=== PATIENT | male | born 1940 | race Caucasian/White ===

== ENCOUNTER → 2016-05-22 | Outpatient (CLI) | payer OTHER ==
[~2016-05-22] MED LIST: ACET-1487 PO; ASPI81TA28 PO; CHOL1000 PO; COEN1CAP7 PO; CRDCD/180 PO; FAMO20TA11 PO; FRS/40 PO; GABA-113 PO; LPT/40 PO; METO1TAB70 PO; NITR0.4S UT; NORT10CA2 PO; OMEP20TA14 PO; OXYB5TAB21 PO; OXYC1TAB3 PO; POLY335025 PO; POTA-327 PO; RXC5 PO; TRIA75TA53 PO; WARF5TAB7 PO; ZOLP10TA PO; selenium PO
== END | disposition home or self-care (01) ==
LOC: C.PATHSPEC 13:55
PROVIDERS: ATTEND Dermatology
DX: B07.9 Viral wart, unspecified (principal); L85.8 Other specified epidermal thickening; L57.0 Actinic keratosis; L82.1 Other seborrheic keratosis

== ENCOUNTER → 2016-05-23 | Outpatient (CLI) | payer OTHER ==
[2015-05-25 13:34] VITALS: BP 131/78; PULSE 55
[2016-05-23 13:04] VITALS: BP 127/84; PULSE 56; TEMP 36.7; O2SAT 98
--- NOTE | 2016-05-23 15:56 | Radiation Oncology Follow-Up ---
Radiation Oncology Follow-Up Date of Visit May 23, 2016. Reason For Visit Annual follow-up Radiation Completion Date Prostate implant 08/18/02;Ext. RT 11/16/12;Declined horm. suppression; Diagnosis (1) Prostate cancer Status: Resolved Onset Date: 01/30/2012 Location: left lobe of the prostate Histology Subtype: adenocarcinoma Stage: ll Permanent Comment: Rising PSA Status post ultrasound-guided biopsies biopsy stage T2b [place] grade 3+4 Status post seed implant with cesium 131 08/18/2002 Status post completion of IMRT IGRT completed 11/16/2012 Declined hormone suppression Last Edited By: Lupe Blanco on May 25, 2015 15:12 Interim History He's been doing well over this past year. His urinary status is stable. He gave an AUA score of 5. He completed expanded prostate cancer index composite for clinical practice and gave a score of 0 of 12 in urinary incontinence symptoms. He gave a score of 2 of 12 in urinary irritation symptoms. He gave a score of 2 of 12 in bowel symptoms. He did not complete the sexual symptom questionnaire he wrote "impotent" he gave a score of 3 of 12 in hormonal vitality symptoms. His total was 8 of 48. He has been tried on multiple medications for impotence including Viagra and Cialis. He was given Cialis for daily use at his last visit with Dr. Gagnon. He is concerned about potential side effects of medication. He stated when he took Viagra this caused lethargy and headaches. Allergies Coded Allergies: Chlorpheniramine (Verified Allergy, Intermediate, URETER SWELLED SHUT, ) Phenylpropanolamine (Verified Allergy, Intermediate, URETER SWELLED SHUT, 07/28/15) Losartan (Unverified Allergy, Unknown, per cardio note- increase in creatine, 07/28/15) Home Medications Scheduled Acetaminophen (Tylenol Arthritis Ext Rel), 1,300 MG PO BID Aspirin (Aspirin Ec), 81 MG PO DAILY Atorvastatin (Lipitor), 40 MG PO QAM Cholecalciferol (Vitamin D3), 1 TAB PO QAM Coenzyme Q10 (Ubidecarenone) (Coq10), 1 CAP PO DAILY Diltiazem Hcl Coated Beads (Cardizem Cd), 360 MG PO HS Famotidine (Pepcid), 20 MG PO DAILY Furosemide (Lasix), 40 MG PO QAM Gabapentin (Neurontin), 300 MG PO HS Metoprolol Succinate (Toprol Xl), 200 MG PO HS Nitroglycerin (Nitrostat), 0.4 MG UT PRN Nortriptyline (Pamelor), 10 MG PO HS Potassium Ext Rel (Klor-Con), 10 MEQ PO DAILY Triamterene/Hctz (Maxzide 75MG/50MG), 1 TAB PO QAM Warfarin Sod (Jantoven), 5 MG PO DIRECTED Zolpidem Tartrate (Ambien), 10 MG PO HS PRN [selenium], 200 MG PO DAILY Scheduled PRN Oxycodone HCl (Oxycodone HCl), 5-10 MG PO Q4H PRN for Pain Polyethylene Glycol 3350 (Miralax), 1 PACK PO DAILY PRN for Constipation Review of Systems Gastrointestinal: Symptoms: Constipation, Rectal Bleeding GI Comments: Uses miralax w/relief;No fiber supplements; Oral: Symptoms: No Problems Respiratory: Symptoms: WNL Urinary: Symptoms: WNL Comments: Doesn't ignore urge to void;2 voids/night; Skin: Symptoms: No Problems Other Skin Symptoms: psorasis on knees Physical Exam Vital Signs Date Time Temp Pulse Resp B/P Pulse Ox O2 Delivery O2 Flow Rate FiO2 05/23/16 13:04 36.7 56 16 127/84 98 Pain: Pain Onset: 9 months Pain Duration: Constant Side: Left Pain Location: Back Patient Pain Scale: 0 - 10 Initial Pain Intensity: 10.0 Pain Description: Stabbing, Sharp Additional Comments: Appt with pain management tomorrow Fatigue: None General Appearance: no apparent distress Eyes: normal inspection, EOMI ENT: normal ENT inspection, hearing grossly normal Respiratory/Chest: lungs clear, no respiratory distress, no accessory muscle use Cardiovascular: regular rate, rhythm, no gallop, no murmur Abdomen: non tender, soft, no organomegaly Anal / Rectum: Deferred. Performed by his PCP last month. Extremities: no pedal edema Neurologic/Psychiatric: no motor/sensory deficits, alert, normal mood/affect Laboratory Studies Test 03/04/16 12:09 White Blood Count 7.41 K/uL (4.8-10.8) Red Blood Count 4.93 M/uL (4.7-6.1) Hemoglobin 14.8 g/dL (14.0-18.0) Hematocrit 43.1 % (42-52) Mean Corpuscular Volume 87.4 fL (80-100) Mean Corpuscular Hemoglobin 30.0 pg (25-34) Mean Corpuscular Hemoglobin Concent 34.3 g/dl (32-36) Platelet Count 202 K/uL (130-400) Mean Platelet Volume 10.1 fL (7.4-10.4) Neutrophils (%) (Auto) 55.5 % Lymphocytes (%) (Auto) 31.6 % Monocytes (%) (Auto) 10.8 % Eosinophils (%) (Auto) 1.1 % Basophils (%) (Auto) 0.7 % Neutrophils # (Auto) 4.12 K/uL (1.4-6.5) Lymphocytes # (Auto) 2.34 K/uL (1.2-3.4) Monocytes # (Auto) 0.80 K/uL (0.11-0.59) Eosinophils # (Auto) 0.08 K/uL (0-0.5) Basophils # (Auto) 0.05 K/uL (0-0.2) RDW Standard Deviation 45.7 fL (36.4-46.3) RDW Coefficient of Variation 14.4 % (11.5-14.5) Immature Granulocyte % (Auto) 0.3 % Immature Granulocyte # (Auto) 0.02 K/uL (0.00-0.02) Sodium Level 143 mmol/L (136-145) Potassium Level 3.8 mmol/L (3.5-5.1) Chloride Level 107 mmol/L (98-107) Carbon Dioxide Level 26 mmol/L (21-32) Anion Gap 10.0 mmol/L (3-11) Blood Urea Nitrogen 16 mg/dl (7-18) Creatinine 1.20 mg/dl (0.60-1.40) Estimated GFR () 68.1 Estimated GFR (Non- 58.8 BUN/Creatinine Ratio 13.5 (10-20) Random Glucose 117 mg/dl (70-99) Estimated Average Glucose 134 mg/dl Hemoglobin A1c 6.3 % (4.5-5.6) Calcium Level 9.4 mg/dl (8.5-10.1) Prostate Specific Antigen 0.040 ng/ml (0.000-4.000) 25-Hydroxy Vitamin D Total 30.2 ng/ml (30-100) Thyroid Stimulating Hormone (TSH) 1.740 uIu/ml (0.300-4.500) Additional Studies He has had recheck PSAs. His PSA on 05/26/2015 was 0.040. The PSA on 2015 was 0.040. Assessment & Plan Plan: Continue regular follow-up with Dr. Gagnon and his primary care physician. We'll he will need to review taking the Cialis with Dr. Gallagher. There would be a concerned due to his prescription for nitroglycerin. Continue with recheck PSAs every 6 months. We reviewed the trending of his PSAs over the past 4 years. We asked him to return to our office in 1 year. He may call if he has been questions or concerns we'll be happy to see him. Total Time In Follow-Up I spent 20 minutes speaking to the patient and performing examination. I spent 15 minutes reviewing information in completing this note. Copy To Wilmar Gallagher M.D.; Iban Gagnon MD
== END | disposition home or self-care (01) ==
LOC: C.ONC 12:44
PROVIDERS: ATTEND Radiology Radiation Oncology
DX: Z08 Encounter for follow-up examination after completed treatment for malignant neoplasm (principal); Z92.3 Personal history of irradiation; Z85.46 Personal history of malignant neoplasm of prostate

== ENCOUNTER → 2016-10-08 | Outpatient (CLI) | payer OTHER ==
[~2016-10-08] MED LIST changes: -OMEP20TA14 PO; -OXYB5TAB21 PO; -OXYC1TAB3 PO
[2016-10-08 12:21] LABS: BASO % 1.1 %; BASO ABS # 0.07 K/uL (0-0.2); COMPLETE YES; EOS % 1.1 %; HEMATOCRIT 42.2 % (42-52); IG% 0.3 %; LYMPH % 31.2 %; LYMPH ABS # 2.01 K/uL (1.2-3.4); MEAN CELL VOLUME 87.6 fL (80-100); MEAN CORPUSCULAR HEMOGLOBIN 28.8 pg (25-34); MEAN CORPUSCULAR HGB CONC 32.9 g/dl (32-36); MEAN PLATELET VOLUME 10.7 fL (7.4-10.4); MONO % 12.4 %; NEUT % 53.9 %; PLATELET COUNT 171 K/uL (130-400); RED BLOOD COUNT 4.82 M/uL (4.7-6.1); WHITE BLOOD COUNT 6.44 K/uL (4.8-10.8)
[2016-10-08 12:42] LABS: ESTIMATED AVERAGE GLUCOSE 128 mg/dl; HA1C FLAG Normal (Normal)
[2016-10-08 12:51] LABS: ALT/SGPT 21 U/L (12-78); AST/SGOT 14 U/L (15-37); BLOOD UREA NITROGEN 18 mg/dl (7-18); BUN/CREATININE RATIO 18.3 (10-20); CALCIUM 8.9 mg/dl (8.5-10.1); CARBON DIOXIDE 29 mmol/L (21-32); CHLORIDE 106 mmol/L (98-107); CREATININE 0.98 mg/dl (0.60-1.40); GLUCOSE 105 mg/dl (70-99); POTASSIUM 3.7 mmol/L (3.5-5.1); SODIUM 142 mmol/L (136-145)
[2016-10-08 12:54] LABS: ALB/GLOB RATIO 0.9 (0.9-2); ALKALINE PHOSPHATASE 104 U/L (45-117); CHOLESTEROL 94 mg/dl (0-200); CHOLESTEROL/HDL RATIO 2.7; HDL CHOLESTEROL 35 mg/dl; LDL CHOLESTEROL CALCULATED 31 mg/dl; TRIGLYCERIDES 142 mg/dl (0-150); VERY LOW DENSITY LIPOPROT CALC 28 mg/dl
== END | disposition home or self-care (01) ==
LOC: C.LAB 09:51
PROVIDERS: ATTEND Internal Medicine Geriatric Medicine
DX: I12.9 Hypertensive chronic kidney disease with stage 1 through stage 4 chronic kidney disease, or unspecified chronic kidney disease (principal); R51 Headache; I25.10 Atherosclerotic heart disease of native coronary artery without angina pectoris; R73.9 Hyperglycemia, unspecified; N18.9 Chronic kidney disease, unspecified; E78.5 Hyperlipidemia, unspecified; I48.0 Paroxysmal atrial fibrillation; Z79.01 Long term (current) use of anticoagulants

== ENCOUNTER → 2017-02-26 | Outpatient (CLI) | payer OTHER ==
[~2017-02-26] MED LIST changes: +METO-648 PO; -METO1TAB70 PO
[2017-02-26 12:14] LABS: BASO % 0.9 %; COMPLETE YES; EOS % 1.5 %; HEMATOCRIT 43.9 % (42-52); IG% 0.5 %; LYMPH % 20.9 %; LYMPH ABS # 2.35 K/uL (1.2-3.4); MEAN CELL VOLUME 87.8 fL (80-100); MEAN CORPUSCULAR HGB CONC 34.2 g/dl (32-36); MEAN PLATELET VOLUME 10.5 fL (7.4-10.4); MONO % 7.7 %; NEUT % 68.5 %; PLATELET COUNT 251 K/uL (130-400); WHITE BLOOD COUNT 11.24 K/uL (4.8-10.8)
[2017-02-26 12:23] LABS: ESTIMATED AVERAGE GLUCOSE 140 mg/dl; HA1C FLAG Normal (Normal)
[2017-02-26 12:27] LABS: BLOOD UREA NITROGEN 26 mg/dl (7-18); CALCIUM 9.4 mg/dl (8.5-10.1); CARBON DIOXIDE 32 mmol/L (21-32); CHLORIDE 98 mmol/L (98-107); CREATININE 1.35 mg/dl (0.60-1.40); GLUCOSE 126 mg/dl (70-99); POTASSIUM 3.1 mmol/L (3.5-5.1); SODIUM 137 mmol/L (136-145)
[2017-02-26 13:03] LABS: URINE PROTIEN/CREAT RATIO 0.1 (0-0.2); URINE TOTAL PROTEIN 27.2 mg/dl (0-11.9)
--- NOTE | 2017-03-03 10:28 | CODING QUERY MEDICAL NECESSITY ---
SUPPORTING DIAGNOSIS NEEDED Dr. Gagnon, A supporting diagnosis is required for the test/procedure performed on this patient in order for us to be reimbursed by the patient's insurance. Please provide a supporting diagnosis for the following test/procedure listed below next to the test name along with your signature. *If there is no additional diagnosis for this patient that would support the following test/procedure please document that below next to the test/procedure. Test(s)/Procedure(s) that require a supporting diagnosis: * [id number] PSA DIAGNOSIS: DATE OF SERVICE: 02/26/17 Provider Signature: Date: Thank you Benjamín Borges [facility] Information Management Once completed, please kindly fax back to [phone] For questions please call [phone]
--- NOTE | 2017-03-03 10:30 | CODING QUERY MEDICAL NECESSITY ---
SUPPORTING DIAGNOSIS NEEDED Dr. Gallagher, A supporting diagnosis is required for the test/procedure performed on this patient in order for us to be reimbursed by the patient's insurance. Please provide a supporting diagnosis for the following test/procedure listed below next to the test name along with your signature. *If there is no additional diagnosis for this patient that would support the following test/procedure please document that below next to the test/procedure. Test(s)/Procedure(s) that require a supporting diagnosis: * ([id number]) VITAMIN D ASSAY DIAGNOSIS: DATE OF SERVICE: 02/26/17 Provider Signature: Date: Thank you Benjamín Borges [facility] Information Management Once completed, please kindly fax back to [phone] For questions please call [phone]
== END | disposition home or self-care (01) ==
LOC: C.LAB 09:57
PROVIDERS: ATTEND Internal Medicine Geriatric Medicine
DX: I10 Essential (primary) hypertension (principal); R73.9 Hyperglycemia, unspecified; M19.90 Unspecified osteoarthritis, unspecified site; Z87.448 Personal history of other diseases of urinary system; E78.5 Hyperlipidemia, unspecified; G62.9 Polyneuropathy, unspecified; R39.9 Unspecified symptoms and signs involving the genitourinary system; N52.9 Male erectile dysfunction, unspecified

== ENCOUNTER → 2017-03-07 | Outpatient (CLI) | payer OTHER ==
[2017-03-07 10:39] LABS: BLOOD UREA NITROGEN 21 mg/dl (7-18); BUN/CREATININE RATIO 18.5 (10-20); CARBON DIOXIDE 28 mmol/L (21-32); CHLORIDE 104 mmol/L (98-107); CREATININE 1.12 mg/dl (0.60-1.40); GLUCOSE 123 mg/dl (70-99); POTASSIUM 3.7 mmol/L (3.5-5.1); SODIUM 139 mmol/L (136-145)
== END | disposition home or self-care (01) ==
LOC: C.LAB 09:11
PROVIDERS: ATTEND Internal Medicine Geriatric Medicine
DX: Z00.00 Encounter for general adult medical examination without abnormal findings (principal); I10 Essential (primary) hypertension; M19.90 Unspecified osteoarthritis, unspecified site; E11.9 Type 2 diabetes mellitus without complications; Z51.81 Encounter for therapeutic drug level monitoring; Z79.01 Long term (current) use of anticoagulants

== ENCOUNTER → 2017-05-29 | Outpatient (CLI) | payer OTHER ==
[~2017-05-29] MED LIST changes: -METO-648 PO; +METO200T31 PO
--- NOTE | 2017-05-29 07:57 | DIAGNOSTIC IMAGING REPORT ---
LUMBAR SPINE W/O CONTRAST HISTORY: Pain. Neuropathy. LUMBAR RADICULOPATHY TECHNIQUE: Multiplanar multisequence MRI of the lumbar spine was performed without the use of contrast. COMPARISON: None. FINDINGS: For the purpose of the report the L5-S1 disc space will be located on axial image 27 of 30. Signal characteristics the vertebral bodies are unremarkable. Mild disc desiccation is noted throughout. There are findings of a posterior laminectomy and fusion at the L4-L5 level. L1-L2: No significant central canal or neural foraminal narrowing. L2-L3: No significant central canal or neural foraminal narrowing. L3-L4: Mild broad-based disc bulge. Minimal impact with anterior thecal sac. L4-L5: No significant central canal or neural foraminal narrowing. Posterior laminectomy and fusion L5-S1: No significant central canal or neural foraminal narrowing. IMPRESSION: 1. Operative changes consistent with an L4-L5 laminectomy and fusion. 2. Minimal disc bulge L3-L4. 3. No significant disc herniation or component of spinal stenosis. The above report was generated using voice recognition software. It may contain grammatical, syntax or spelling errors. Electronically signed by: Julio Taveras M.D. 05/29/2017 7:56 AM Dictated Date/Time: 05/29/2017 7:43 AM
== END | disposition home or self-care (01) ==
LOC: C.MRIBC 06:43
PROVIDERS: ATTEND Pain Medicine Interventional Pain Medicine
DX: M51.16 Intervertebral disc disorders with radiculopathy, lumbar region (principal); Z98.1 Arthrodesis status

== ENCOUNTER → 2017-06-16 | Outpatient (CLI) | payer OTHER | END | disposition home or self-care (01) | LOC: C.LAB 10:11 | PROVIDERS: ATTEND Pain Medicine Interventional Pain Medicine | DX: Z79.01 Long term (current) use of anticoagulants (principal); Z51.81 Encounter for therapeutic drug level monitoring ==

== ENCOUNTER → 2017-07-29 | Outpatient (CLI) | payer OTHER ==
[2017-07-29 12:14] LABS: BASO % 0.7 %; BASO ABS # 0.06 K/uL (0-0.2); EOS ABS # 0.08 K/uL (0-0.5); HEMATOCRIT 41.3 % (42-52); HEMOGLOBIN 14.2 g/dL (14.0-18.0); IG# 0.04 K/uL (0.00-0.02); LYMPH % 32.7 %; LYMPH ABS # 2.64 K/uL (1.2-3.4); MEAN CELL VOLUME 87.7 fL (80-100); MEAN CORPUSCULAR HEMOGLOBIN 30.1 pg (25-34); MEAN CORPUSCULAR HGB CONC 34.4 g/dl (32-36); MEAN PLATELET VOLUME 10.4 fL (7.4-10.4); MONO % 9.7 %; MONO ABS # 0.78 K/uL (0.11-0.59); NEUT % 55.4 %; NEUT ABS # 4.48 K/uL (1.4-6.5); PLATELET COUNT 189 K/uL (130-400); RED CELL DISTRIBUTION WIDTH CV 13.2 % (11.5-14.5); RED CELL DISTRIBUTION WIDTH SD 42.4 fL (36.4-46.3); WHITE BLOOD COUNT 8.08 K/uL (4.8-10.8)
[2017-07-29 12:26] LABS: ALBUMIN 3.5 gm/dl (3.4-5.0); ALT/SGPT 22 U/L (12-78); AST/SGOT 16 U/L (15-37); BLOOD UREA NITROGEN 24 mg/dl (7-18); CALCIUM 9.1 mg/dl (8.5-10.1); CARBON DIOXIDE 29 mmol/L (21-32); CREATININE 1.23 mg/dl (0.60-1.40); GLUCOSE 132 mg/dl (70-99); POTASSIUM 3.9 mmol/L (3.5-5.1); SODIUM 141 mmol/L (136-145)
[2017-07-29 12:29] LABS: ALKALINE PHOSPHATASE 96 U/L (45-117); CHOLESTEROL 98 mg/dl (0-200); LDL CHOLESTEROL CALCULATED 28 mg/dl; TOTAL PROTEIN 7.5 gm/dl (6.4-8.2)
[2017-07-29 12:46] LABS: HEMOGLOBIN A1C 6.1 % (4.5-5.6)
== END | disposition home or self-care (01) ==
LOC: C.LAB 09:57
PROVIDERS: ATTEND Internal Medicine Geriatric Medicine
DX: I10 Essential (primary) hypertension (principal); I25.10 Atherosclerotic heart disease of native coronary artery without angina pectoris; M19.90 Unspecified osteoarthritis, unspecified site; E78.5 Hyperlipidemia, unspecified; Z79.01 Long term (current) use of anticoagulants; I20.9 Angina pectoris, unspecified; E11.9 Type 2 diabetes mellitus without complications

== ENCOUNTER 2019-07-11 13:26 | Observation (INO) ==
[2019-07-11] MEDS ORDERED: SODIUM CHLORIDE 0.9% 1000ML 1,000 ML IV SCH (14:00)
[2019-07-11] MEDS ORDERED: ONDANSETRON INJ 2 MG/ML 2 ML VIAL IV STA (14:01)
[2019-07-11] MEDS ORDERED: ACETAMINOPHEN 500 MG TAB PO STA (14:01)
--- NOTE | 2019-07-11 14:40 | XRay Report ---
XR chest 1V portable CLINICAL HISTORY: fever ACUTE CHANGE IN MENTAL STATUS COMPARISON STUDY: 07/10/2015 FINDINGS: The heart is mildly enlarged. There is persistent elevation right hemidiaphragm. There is n o failure. There is no focal pulmonary consolidation. There is mild vascular crowding at the right adri ng base. There are no significant pleural effusions.[ IMPRESSION: No active disease in the chest. ACT 112: Negative or not required by law. Electronically signed by: Brain Roca M.D. 07/11/2019 2:38 PM
[2019-07-11 14:42] LABS: Appearance Urine Cloudy (Clear); Bacteria Urine Automated Negative (Negative); Bilirubin Urine Negative (Negative); Blood Urine Trace (Negative); Color Urine Yellow; Glucose Urine UA Negative (Negative); Ketones Urine Negative (Negative); Leukocyte Esterase Urine Negative (Negative); Nitrite Urine Negative (Negative); Protein Urine 1+ (Negative); Specific Gravity Urine 1.015 (1.000-1.030); Urobilinogen Urine Negative (Negative); WBC Urine Automated 0 /hpf (0-5)
[2019-07-11 14:57] LABS: Alanine Aminotransferase 115 U/L (12-78); Albumin Globulin Ratio 0.7 (0.9-2); Albumin Level 3.3 gm/dl (3.4-5.0); Alkaline Phosphatase 145 U/L (45-117); Bilirubin,Total 1.2 mg/dl (0.2-1); Blood Urea Nitrogen 21 mg/dl (7-18); Carbon Dioxide 27 mmol/L (21-32); Chloride 100 mmol/L (98-107); Creatinine Clr Calc Pharmacy 48.8 ml/min; Est GFR (African American) 56.9; Est GFR (Non-African American) 49.1; Glucose 172 mg/dl (70-99); Lipase 80 U/L (73-393); Sodium 135 mmol/L (136-145); Total Protein 8.3 gm/dl (6.4-8.2); Troponin I < 0.015 ng/ml (0-0.045)
[2019-07-11 15:04] LABS: Hematocrit (blood only) 45.5 % (42-52); Hemoglobin 15.8 g/dL (14.0-18.0); Mean Corpuscular Hemoglobin 30.4 pg (25-34); Mean Corpuscular Hgb Conc 34.7 g/dL (32-36); Mean Corpuscular Volume 87.7 fL (80-100); RDW Coefficient of Variation 13.3 % (11.5-14.5); Red Blood Count 5.19 M/uL (4.7-6.1); White Blood Count 5.74 K/uL (4.8-10.8)
[2019-07-11 15:05] LABS: INR 1.2 (0.9-1.1); Partial Thromboplastin Ratio 1.2; Partial Thromboplastin Time 33.1 Seconds (21.0-31.0); Prothrombin Time 12.3 Seconds (9.0-12.0)
--- NOTE | 2019-07-11 15:09 | Emergency Department Note ---
Impression & Plan Anaplasmosis, Headache, Rigors, Thrombocytopenia, Elevated LFTs ED Provider Note Provider: Goran Henao MD DATE OF SERVICE: 07/11/2019 CHIEF COMPLAINT: Fever, headaches, nausea HISTORY OF PRESENT ILLNESS: Patient is a 78-year-old gentleman with a past medical history of prostate cancer status post radiation, atrial fibrillation on Coumadin, CKD, type 2 diabetes presenting today complaining of 4 days of what the patient describes as shaking and seems consistent with Reiger's. Patient st ates he is not recorded a fever at home but felt cold at times and developed several days of a headache more frontal. Denies any significant shortness of breath. Patient denies of cough. Denies any chest pain or abdominal pain. States he has been somewhat nauseous at times as well. Denies abdominal pain. Took Tylenol early this morning around 4 AM but none since then. States he feels quite thirsty. States his urine has become concentrated but denies real dysuria. Has baseline urinary frequency. Denies significant neck pain. Denies sick contacts. Has been self isolating at home. No recent travel. REVIEW OF SYSTEMS: A total of 10 review of systems was obtained and negative except as stated above in the HPI. PAST MEDICAL HISTORY: As noted above MEDICATIONS: Reviewed nursing notes and includes Eliquis SOCIAL HISTORY: Lives at home with . Non-smoker. No alcohol use. PHYSICAL EXAM: GENERAL: alert and oriented in no acute distress on stretcher does appear somewhat fatigued Head: normocephalic and atraumatic EYES: No injection, discharge or icterus. PERRL, EOMI. NECK: Trachea midline. Supple. No meningismus ENT: Mucous membranes pink and moist. Pharynx without any tonsillar swelling or exudate LUNGS: Airway patent. No retractions. Breath sounds clear with good air entry bilaterally. HEART: Regular rate and rhythm. No chest wall tenderness ABDOMEN: Soft and non-tender, without guarding or rebound. SKIN: Acyanotic, warm, dry, without rashes EXTREMITIES: Without swelling, tenderness or deformity NEUROLOGICAL: No focal deficits. No aphasia. No facial droop or slurred speech. Ambulatory. EK bpm and what appears to be atrial fibrillation versus flutter. Difficult to determine QTC given this. Do not see acute ST segment elevation. Compared to July [id number] no longer sinus bradycardia. CONTINUOUS CARDIAC MONITORING: was ordered and showed a heart rate of 87 bpm in atrial fib Patient's hypertension was referred to the hospitalist HOSPITAL COURSE: 1349 Patient was first seen and H&P performed. 1605 Patient reassessed and updated. Airborne precautions were removed. 1611 [facility] hospitalist was alerted. Patient's laboratory studies and imaging reviewed. Differential includes Viral syndrome, otitis, pharyngitis, pneumonia, influenza, meningitis, urinary tract infection, sepsis, bacteremia, as well as other pathologies. IMPRESSION/MEDICAL DECISION MAKING: Patient presents complaining of what sounds like Reiger's with associated fever upon arrival. Does not appear grossly meningitic. No significant respiratory status and no evidence of pneumonia on chest x-ray. Patient does have a slight lactate elevation. Renal function around baseline. No significant hyponatremia. Troponin is negative. Lipase not elevated. Slight elevation of AST, ALT and alkaline phosphatase is noted of unclear significance. Bilirubin 1.2. Urinalysis without convincing evidence of infection at this juncture. Laboratory studies likely show no significant leukocytosis. No anemia is noted. Thrombocytopenia is noted. Did receive a call from the pathologist who was reviewing slides noting inclusion bodies concerning for anaplasmosis. Patient initially medicated with IV fluids Tylenol and Zofran here. On reassessment the patient had some moderate improvement but has had some transient episodes of slight hypertension here. Given his comorbidities, elevated pro calcitonin, and the Reiger's earlier due to some concerns about his ability go home. 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 He denies any recent ticks but [place] and has been doing yard work recently. Given this I have treated him with oral doxycycline and given an empiric dose of ceftriaxone here. Additional IV fluid bolus was given. Do not feel this represents now for coronavirus and believe upper precautions can be removed given the explanation of anaplasmosis. The hospitalist was alerted. DIAGNOSIS: Anaplasmosis, headache, elevated LFTs, thrombocytopenia, rigors DISPOSITION: Hospitalist will evaluate Patient was agreeable with this plan. Past Med/Surg History Social History Preferred Language: Thai Communication Ability: Effective Visual Impairment: Limited Hearing Ability: Hard of Hearing Minute Clerk Required: No Beliefs That Will Affect Care: None marital status: Current Living Situation: Spouse current occupational status: retired Feels Safe at Home: Yes Smoking Status: Never smoker Second Hand Exposure: No ; Hx Alcohol Use: No Hx Substance Use: No Childhood Exposure to Second-Hand Smoke: Yes caffeine: Yes (1/2 cup of coffee daily) Dental Care, Regularly: Yes Physical Activity Frequency: Does not Exercise Seatbelt Use: always Sunscreen Use: No (wears a hat while in the sun) Allergies Allergies Allergy/AdvReac Type Severity Reaction Status Date / Time felodipine [From Plendil] Allergy Unknown unknown Verified 07/11/19 14:37 reaction losartan Allergy Unknown elevated Verified 07/11/19 14:37 creatinine (per records) chlorpheniramine AdvReac Unknown ureteral Verified 07/11/19 14:37 swelling [employer] AdvReac Unknown ureteral Uncoded 07/11/19 14:37 swelling Home Meds Home Medications Medication Instructions Recorded Confirmed acetaminophen 650 mg 1,300 mg PO BID tab 10/15/18 07/11/19 tablet,extended release cholecalciferol (vitamin D3) 25 1,000 units PO DAILY tab 10/15/18 07/11/19 mcg (1,000 unit) tablet nitroglycerin 0.4 mg sublingual 0.4 mg SL ONCE PRN #25 tab 10/15/18 07/11/19 tablet polyethylene glycol 3350 17 gram 17 gm PO DAILY PRN 12/15/18 07/11/19 oral powder packet aspirin [Aspir-81] 81 mg PO DAILY 01/22/19 07/11/19 diltiazem HCl 240 mg PO QAM 01/22/19 07/11/19 nortriptyline 10 mg PO HS 01/22/19 07/11/19 potassium chloride 40 meq PO DAILY 01/22/19 07/11/19 triamterene-hydrochlorothiazid 1 tab PO QAM 01/22/19 07/11/19 docusate sodium 100 mg capsule 100 mg PO QAM cap 01/25/19 07/11/19 gabapentin 300 mg capsule 300 mg PO TID #270 cap 01/25/19 07/11/19 metoprolol succinate 100 mg 150 mg PO DAILY tab 01/25/19 07/11/19 tablet,extended release 24 hr apixaban 5 mg tablet 5 mg PO BID 05/06/19 07/11/19 furosemide 40 mg tablet 40 mg PO [id number] tab 05/06/19 07/11/19 Previous Rx's Medication Instructions Recorded blood sugar diagnostic #100 ea 02/09/19 lancets 33 gauge #100 ea 02/09/19 furosemide 40 mg tablet 40 mg PO DAILY PRN #30 tab 05/05/19 atorvastatin 80 mg tablet 80 mg PO HS #90 tab 05/06/19 Results & Data (ED) Vital Signs Vital Signs - 24 hr 07/11/19 13:30 07/11/19 14:24 07/11/19 14:29 Temperature 39.2 C H Temperature Source Oral Pulse Rate 96 H 98 H 90 Pulse Rate from SpO2 Sensor 91 H 91 H Respiratory Rate 20 22 28 H Respiratory Effort / Characteristics Non-Labored Spontaneous Respiratory Depth Normal Respiratory Pattern Regular Blood Pressure 134/78 110/73 Blood Pressure Mean 96 77 Pulse Oximetry 95 92 95 Oxygen Delivery Method Room Air Sepsis Recent Fever Within 48 Hours Yes Sepsis New/Unexplained Change in Mental Status No Sepsis Action Taken by Nursing No Action Required 07/11/19 14:30 07/11/19 14:31 07/11/19 15:00 Temperature Temperature Source Pulse Rate 84 87 84 Pulse Rate from SpO2 Sensor 88 94 H 86 Respiratory Rate 21 24 22 Respiratory Effort / Characteristics Respiratory Depth Respiratory Pattern Blood Pressure 135/68 99/76 L Blood Pressure Mean 72 83 Pulse Oximetry 95 95 96 Oxygen Delivery Method Sepsis Recent Fever Within 48 Hours Sepsis New/Unexplained Change in Mental Status Sepsis Action Taken by Nursing 07/11/19 15:05 07/11/19 15:08 07/11/19 15:30 Temperature 37.7 C H Temperature Source Oral Pulse Rate 75 82 Pulse Rate from SpO2 Sensor 74 87 Respiratory Rate 20 24 Respiratory Effort / Characteristics Respiratory Depth Respiratory Pattern Blood Pressure 99/76 L 127/78 Blood Pressure Mean 84 83 Pulse Oximetry 95 94 Oxygen Delivery Method Sepsis Recent Fever Within 48 Hours Sepsis New/Unexplained Change in Mental Status Sepsis Action Taken by Nursing 07/11/19 15:31 07/11/19 16:00 07/11/19 16:30 Temperature Temperature Source Pulse Rate 80 92 H 86 Pulse Rate from SpO2 Sensor 92 H 92 H 92 H Respiratory Rate 22 33 H 19 Respiratory Effort / Characteristics Respiratory Depth Respiratory Pattern Blood Pressure 109/77 Blood Pressure Mean 83 Pulse Oximetry 96 92 93 Oxygen Delivery Method Sepsis Recent Fever Within 48 Hours Sepsis New/Unexplained Change in Mental Status Sepsis Action Taken by Nursing 07/11/19 16:31 Temperature Temperature Source Pulse Rate 89 Pulse Rate from SpO2 Sensor 91 H Respiratory Rate 22 Respiratory Effort / Characteristics Respiratory Depth Respiratory Pattern Blood Pressure 99/65 L Blood Pressure Mean 90 Pulse Oximetry 94 Oxygen Delivery Method Sepsis Recent Fever Within 48 Hours Sepsis New/Unexplained Change in Mental Status Sepsis Action Taken by Nursing Laboratory Data Result diagrams: 07/11/19 14:15 07/11/19 Unknown Lab Results 07/11/19 07/11/19 07/11/19 Range/Units 14:15 14:15 14:15 WBC (4.8-10.8) K/uL RBC (4.7-6.1) M/uL Hgb (14.0-18.0) g/dL Hct (42-52) % MCV (80-100) fL MCH (25-34) pg MCHC (32-36) g/dL RDW Std Deviation (36.4-46.3) fL RDW Coeff of Patito (11.5-14.5) % Plt Count (130-400) K/uL MPV (7.4-10.4) fL Immature Gran % (Auto) % Neut % (Auto) % Lymph % (Auto) % Owen % (Auto) % Eos % (Auto) % Baso % (Auto) % Immature Gran # (Auto) (0.00-0.02) K/uL Neut # (Auto) (1.4-6.5) K/uL Lymph # (Auto) (1.2-3.4) K/uL Owen # (Auto) (0.11-0.59) K/uL Eos # (Auto) (0-0.5) K/uL Baso # (Auto) (0-0.2) K/uL Blood Smear Review Toxic Vacuolation Platelet Estimate (Normal) PT Cancelled INR Cancelled APTT (21.0-31.0) Seconds PTT Ratio Sodium 135 L (136-145) mmol/L Potassium (3.5-5.1) mmol/L Chloride 100 (98-107) mmol/L Carbon Dioxide 27 (21-32) mmol/L Anion Gap 8.0 (3-11) BUN 21 H (7-18) mg/dl Creatinine 1.37 (0.6-1.4) mg/dl Est Cr Clr Drug Dosing 48.8 ml/min Est GFR ( Amer) 56.9 Est GFR (Non-Af Amer) 49.1 BUN/Creatinine Ratio 15.0 (10-20) Glucose 172 H (70-99) mg/dl Lactate 2.3 H* (0.4-2.0) mmol/L Calcium 9.0 (8.5-10.1) mg/dl Total Bilirubin 1.2 H (0.2-1) mg/dl AST (15-37) U/L ALT 115 H (12-78) U/L Alkaline Phosphatase 145 H (45-117) U/L Troponin I < 0.015 (0-0.045) ng/ml Total Protein 8.3 H (6.4-8.2) gm/dl Albumin 3.3 L (3.4-5.0) gm/dl Globulin 5.0 H (2.5-4.0) gm/dl Albumin/Globulin Ratio 0.7 L (0.9-2) Lipase 80 (73-393) U/L Procalcitonin (0-0.5) ng/ml Urine Color Urine Appearance (Clear) Urine pH (4.5-7.5) Ur Specific [place] (1.000-1.030) Urine Protein (Negative) Urine Glucose (UA) (Negative) Urine Ketones (Negative) Urine Blood (Negative) Urine Nitrite (Negative) Urine Bilirubin (Negative) Urine Urobilinogen (Negative) Ur Leukocyte Esterase (Negative) Urine WBC (Auto) (0-5) /hpf Urine RBC (Auto) (0-4) /hpf U Hyaline Cast (Auto) (0-5) /lpf U Epithel Cells (Auto) (0-5) /lpf Urine Bacteria (Auto) (Negative) Adenovirus (PCR) (NotDetected) B. pertussis DNA (PCR) (NotDetected) B.parapertussis DNA PCR (NotDetected) C. pneumoniae DNA (PCR) (NotDetected) Coronavirus OC43 (PCR) (NotDetected) Coronavirus HKU1 (PCR) (NotDetected) Coronavirus 229E (PCR) (NotDetected) Coronavirus NL63 (PCR) (NotDetected) Human Metapneumovir PCR (NotDetected) Influenza Type A (PCR) (NotDetected) Influenza Type B (PCR) (NotDetected) M. pneumoniae (PCR) (NotDetected) Parainfluenza 1 (PCR) (NotDetected) Parainfluenza 2 (PCR) (NotDetected) Parainfluenza 3 (PCR) (NotDetected) Parainfluenza 4 (PCR) (NotDetected) RSV (PCR) (NotDetected) Entero/Rhino (PCR) (NotDetected) 07/11/19 07/11/19 07/11/19 Range/Units 14:15 14:15 14:15 WBC 5.74 (4.8-10.8) K/uL RBC 5.19 (4.7-6.1) M/uL Hgb 15.8 (14.0-18.0) g/dL Hct 45.5 (42-52) % MCV 87.7 (80-100) fL MCH 30.4 (25-34) pg MCHC 34.7 (32-36) g/dL RDW Std Deviation 43.0 (36.4-46.3) fL RDW Coeff of Patito 13.3 (11.5-14.5) % Plt Count 43 L (130-400) K/uL MPV 12.1 H (7.4-10.4) fL Immature Gran % (Auto) 0.3 % Neut % (Auto) 78.4 % Lymph % (Auto) 11.7 % Owen % (Auto) 8.9 % Eos % (Auto) 0.0 % Baso % (Auto) 0.7 % Immature Gran # (Auto) 0.02 (0.00-0.02) K/uL Neut # (Auto) 4.50 (1.4-6.5) K/uL Lymph # (Auto) 0.67 L (1.2-3.4) K/uL Owen # (Auto) 0.51 (0.11-0.59) K/uL Eos # (Auto) 0.00 (0-0.5) K/uL Baso # (Auto) 0.04 (0-0.2) K/uL Blood Smear Review Toxic Vacuolation 1+ Platelet Estimate Decreased L (Normal) PT INR APTT (21.0-31.0) Seconds PTT Ratio Sodium (136-145) mmol/L Potassium (3.5-5.1) mmol/L Chloride (98-107) mmol/L Carbon Dioxide (21-32) mmol/L Anion Gap (3-11) BUN (7-18) mg/dl Creatinine (0.6-1.4) mg/dl Est Cr Clr Drug Dosing ml/min Est GFR ( Amer) Est GFR (Non-Af Amer) BUN/Creatinine Ratio (10-20) Glucose (70-99) mg/dl Lactate (0.4-2.0) mmol/L Calcium (8.5-10.1) mg/dl Total Bilirubin (0.2-1) mg/dl AST (15-37) U/L ALT (12-78) U/L Alkaline Phosphatase (45-117) U/L Troponin I (0-0.045) ng/ml Total Protein (6.4-8.2) gm/dl Albumin (3.4-5.0) gm/dl Globulin (2.5-4.0) gm/dl Albumin/Globulin Ratio (0.9-2) Lipase (73-393) U/L Procalcitonin 0.93 H (0-0.5) ng/ml Urine Color Yellow Urine Appearance Cloudy A (Clear) Urine pH 5.0 (4.5-7.5) Ur Specific [place] 1.015 (1.000-1.030) Urine Protein 1+ H (Negative) Urine Glucose (UA) Negative (Negative) Urine Ketones Negative (Negative) Urine Blood Trace H (Negative) Urine Nitrite Negative (Negative) Urine Bilirubin Negative (Negative) Urine Urobilinogen Negative (Negative) Ur Leukocyte Esterase Negative (Negative) Urine WBC (Auto) 0 (0-5) /hpf Urine RBC (Auto) 5-10 H (0-4) /hpf U Hyaline Cast (Auto) 1-5 (0-5) /lpf U Epithel Cells (Auto) 10-20 H (0-5) /lpf Urine Bacteria (Auto) Negative (Negative) Adenovirus (PCR) (NotDetected) B. pertussis DNA (PCR) (NotDetected) B.parapertussis DNA PCR (NotDetected) C. pneumoniae DNA (PCR) (NotDetected) Coronavirus OC43 (PCR) (NotDetected) Coronavirus HKU1 (PCR) (NotDetected) Coronavirus 229E (PCR) (NotDetected) Coronavirus NL63 (PCR) (NotDetected) Human Metapneumovir PCR (NotDetected) Influenza Type A (PCR) (NotDetected) Influenza Type B (PCR) (NotDetected) M. pneumoniae (PCR) (NotDetected) Parainfluenza 1 (PCR) (NotDetected) Parainfluenza 2 (PCR) (NotDetected) Parainfluenza 3 (PCR) (NotDetected) Parainfluenza 4 (PCR) (NotDetected) RSV (PCR) (NotDetected) Entero/Rhino (PCR) (NotDetected) 07/11/19 07/11/19 07/11/19 Range/Units 14:16 14:16 14:47 WBC (4.8-10.8) K/uL RBC (4.7-6.1) M/uL Hgb (14.0-18.0) g/dL Hct (42-52) % MCV (80-100) fL MCH (25-34) pg MCHC (32-36) g/dL RDW Std Deviation (36.4-46.3) fL RDW Coeff of Patito (11.5-14.5) % Plt Count (130-400) K/uL MPV (7.4-10.4) fL Immature Gran % (Auto) % Neut % (Auto) % Lymph % (Auto) % Owen % (Auto) % Eos % (Auto) % Baso % (Auto) % Immature Gran # (Auto) (0.00-0.02) K/uL Neut # (Auto) (1.4-6.5) K/uL Lymph # (Auto) (1.2-3.4) K/uL Owen # (Auto) (0.11-0.59) K/uL Eos # (Auto) (0-0.5) K/uL Baso # (Auto) (0-0.2) K/uL Blood Smear Review Toxic Vacuolation Platelet Estimate (Normal) PT 12.3 H INR 1.2 H APTT 33.1 H (21.0-31.0) Seconds PTT Ratio 1.2 Sodium (136-145) mmol/L Potassium (3.5-5.1) mmol/L Chloride (98-107) mmol/L Carbon Dioxide (21-32) mmol/L Anion Gap (3-11) BUN (7-18) mg/dl Creatinine (0.6-1.4) mg/dl Est Cr Clr Drug Dosing ml/min Est GFR ( Amer) Est GFR (Non-Af Amer) BUN/Creatinine Ratio (10-20) Glucose (70-99) mg/dl Lactate (0.4-2.0) mmol/L Calcium (8.5-10.1) mg/dl Total Bilirubin (0.2-1) mg/dl AST (15-37) U/L ALT (12-78) U/L Alkaline Phosphatase (45-117) U/L Troponin I (0-0.045) ng/ml Total Protein (6.4-8.2) gm/dl Albumin (3.4-5.0) gm/dl Globulin (2.5-4.0) gm/dl Albumin/Globulin Ratio (0.9-2) Lipase (73-393) U/L Procalcitonin (0-0.5) ng/ml Urine Color Urine Appearance (Clear) Urine pH (4.5-7.5) Ur Specific [place] (1.000-1.030) Urine Protein (Negative) Urine Glucose (UA) (Negative) Urine Ketones (Negative) Urine Blood (Negative) Urine Nitrite (Negative) Urine Bilirubin (Negative) Urine Urobilinogen (Negative) Ur Leukocyte Esterase (Negative) Urine WBC (Auto) (0-5) /hpf Urine RBC (Auto) (0-4) /hpf U Hyaline Cast (Auto) (0-5) /lpf U Epithel Cells (Auto) (0-5) /lpf Urine Bacteria (Auto) (Negative) Adenovirus (PCR) Not Detected (NotDetected) B. pertussis DNA (PCR) Not Detected (NotDetected) B.parapertussis DNA PCR Not Detected (NotDetected) C. pneumoniae DNA (PCR) Not Detected (NotDetected) Coronavirus OC43 (PCR) Not Detected (NotDetected) Coronavirus HKU1 (PCR) Not Detected (NotDetected) Coronavirus 229E (PCR) Not Detected (NotDetected) Coronavirus NL63 (PCR) Not Detected (NotDetected) Human Metapneumovir PCR Not Detected (NotDetected) Influenza Type A (PCR) Not Detected Cancelled (NotDetected) Influenza Type B (PCR) Not Detected Cancelled (NotDetected) M. pneumoniae (PCR) Not Detected (NotDetected) Parainfluenza 1 (PCR) Not Detected (NotDetected) Parainfluenza 2 (PCR) Not Detected (NotDetected) Parainfluenza 3 (PCR) Not Detected (NotDetected) Parainfluenza 4 (PCR) Not Detected (NotDetected) RSV (PCR) Not Detected (NotDetected) Entero/Rhino (PCR) Not Detected (NotDetected) 07/11/19 07/11/19 Range/Units 16:16 Unknown WBC (4.8-10.8) K/uL RBC (4.7-6.1) M/uL Hgb (14.0-18.0) g/dL Hct (42-52) % MCV (80-100) fL MCH (25-34) pg MCHC (32-36) g/dL RDW Std Deviation (36.4-46.3) fL RDW Coeff of Patito (11.5-14.5) % Plt Count (130-400) K/uL MPV (7.4-10.4) fL Immature Gran % (Auto) % Neut % (Auto) % Lymph % (Auto) % Owen % (Auto) % Eos % (Auto) % Baso % (Auto) % Immature Gran # (Auto) (0.00-0.02) K/uL Neut # (Auto) (1.4-6.5) K/uL Lymph # (Auto) (1.2-3.4) K/uL Owen # (Auto) (0.11-0.59) K/uL Eos # (Auto) (0-0.5) K/uL Baso # (Auto) (0-0.2) K/uL Blood Smear Review Toxic Vacuolation Platelet Estimate (Normal) PT INR APTT (21.0-31.0) Seconds PTT Ratio Sodium (136-145) mmol/L Potassium 3.6 (3.5-5.1) mmol/L Chloride (98-107) mmol/L Carbon Dioxide (21-32) mmol/L Anion Gap (3-11) BUN (7-18) mg/dl Creatinine (0.6-1.4) mg/dl Est Cr Clr Drug Dosing ml/min Est GFR ( Amer) Est GFR (Non-Af Amer) BUN/Creatinine Ratio (10-20) Glucose (70-99) mg/dl Lactate 1.9 (0.4-2.0) mmol/L Calcium (8.5-10.1) mg/dl Total Bilirubin (0.2-1) mg/dl AST 119 H (15-37) U/L ALT (12-78) U/L Alkaline Phosphatase (45-117) U/L Troponin I (0-0.045) ng/ml Total Protein (6.4-8.2) gm/dl Albumin (3.4-5.0) gm/dl Globulin (2.5-4.0) gm/dl Albumin/Globulin Ratio (0.9-2) Lipase (73-393) U/L Procalcitonin (0-0.5) ng/ml Urine Color Urine Appearance (Clear) Urine pH (4.5-7.5) Ur Specific [place] (1.000-1.030) Urine Protein (Negative) Urine Glucose (UA) (Negative) Urine Ketones (Negative) Urine Blood (Negative) Urine Nitrite (Negative) Urine Bilirubin (Negative) Urine Urobilinogen (Negative) Ur Leukocyte Esterase (Negative) Urine WBC (Auto) (0-5) /hpf Urine RBC (Auto) (0-4) /hpf U Hyaline Cast (Auto) (0-5) /lpf U Epithel Cells (Auto) (0-5) /lpf Urine Bacteria (Auto) (Negative) Adenovirus (PCR) (NotDetected) B. pertussis DNA (PCR) (NotDetected) B.parapertussis DNA PCR (NotDetected) C. pneumoniae DNA (PCR) (NotDetected) Coronavirus OC43 (PCR) (NotDetected) Coronavirus HKU1 (PCR) (NotDetected) Coronavirus 229E (PCR) (NotDetected) Coronavirus NL63 (PCR) (NotDetected) Human Metapneumovir PCR (NotDetected) Influenza Type A (PCR) (NotDetected) Influenza Type B (PCR) (NotDetected) M. pneumoniae (PCR) (NotDetected) Parainfluenza 1 (PCR) (NotDetected) Parainfluenza 2 (PCR) (NotDetected) Parainfluenza 3 (PCR) (NotDetected) Parainfluenza 4 (PCR) (NotDetected) RSV (PCR) (NotDetected) Entero/Rhino (PCR) (NotDetected) Administered Medications Discontinued Medications Acetaminophen (Tylenol) 1,000 mg PO NOW STA Stop: 07/11/19 14:02 Last Admin: 07/11/19 14:18 Dose: 1,000 mg Documented by: [id number] Doxycycline Hyclate (Vibramycin) 100 mg PO NOW STA Stop: 07/11/19 15:59 Last Admin: 07/11/19 16:12 Dose: 100 mg Documented by: [id number] Sodium Chloride (Nss 1000ml) 1,000 mls @ 999 mls/hr IV .[id number] AMANDA Stop: 07/11/19 15:00 Last Infusion: 07/11/19 15:13 Dose: 0 mls/hr Documented by: [id number] Admin: 07/11/19 14:20 Dose: 999 mls/hr Documented by: [id number] Ceftriaxone Sodium (Rocephin) 2,000 mg in 70 mls @ 140 mls/hr IV NOW STA Stop: 07/11/19 16:27 Last Admin: 07/11/19 16:12 Dose: 140 mls/hr Documented by: [id number] Ondansetron HCl (Zofran) 4 mg IV NOW STA Stop: 07/11/19 14:02 Last Admin: 07/11/19 14:19 Dose: 4 mg Documented by: [id number] Discharge Plan Visit Data Chief Complaint: Illness Stated Complaint: NAUSEA, VOMITING, SHAKING ED Provider: Goran Henao Discharge Problem: Anaplasmosis, Headache, Rigors, Thrombocytopenia, Elevated LFTs Patient Disposition: Being Evaluated by Hospitalist Condition: Good Prescriptions Prescriptions: No Action (DME) OneTouch Ultra Blue Test Strip strip See Rx Instructions .ROUTE .MEDSUPPLY Qty: 100 RF: 3 (DME) lancets [OneTouch Delica Lancets] 33 gauge misc See Rx Instructions .ROUTE .MEDSUPPLY Qty: 100 RF: 3 furosemide 40 mg tablet 40 mg PO DAILY PRN (Reason: edema) Qty: 30 RF: 5 Eliquis 5 mg tablet 5 mg PO BID RF: 0 furosemide [Lasix] 40 mg tablet 40 mg PO [id number] RF: 0 atorvastatin 80 mg tablet 80 mg PO HS Qty: 90 RF: 3 acetaminophen 650 mg tablet extended release 1,300 mg PO BID RF: 0 nitroglycerin 0.4 mg tablet, sublingual 0.4 mg SL ONCE PRN (Reason: Chest Pain) Qty: 25 RF: 0 cholecalciferol (vitamin D3) 1,000 unit tablet 1,000 units PO DAILY RF: 0 gabapentin 300 mg capsule 300 mg PO TID Qty: 270 RF: 0 metoprolol succinate 100 mg tablet extended release 24 hr 150 mg PO DAILY RF: 0 polyethylene glycol 3350 [Miralax] 17 gram powder in packet 17 gm PO DAILY PRN (Reason: Constipation) RF: 0 docusate sodium [Colace] 100 mg capsule 100 mg PO QAM RF: 0 diltiazem HCl 240 mg capsule,extended release 24 hr 240 mg PO QAM RF: 0 potassium chloride 10 mEq tablet extended release 40 meq PO DAILY RF: 0 nortriptyline 10 mg capsule 10 mg PO HS RF: 0 triamterene-hydrochlorothiazid 75-50 mg tablet 1 tab PO QAM RF: 0 aspirin [Aspir-81] 81 mg Tablet,Delayed Release (Dr/Ec) 81 mg PO DAILY RF: 0 Referrals Referrals: Hemal Nazario DO [Primary Care Provider] - Discharge Problem: Headache Qualifiers: Headache type: unspecified Headache chronicity pattern: acute headache I ntractability: not intractable Qualified Code(s): R51 - Headache
[2019-07-11 15:10] LABS: Potassium 3.6 mmol/L (3.5-5.1)
[2019-07-11 15:27] LABS: Mean Platelet Volume 12.1 fL (7.4-10.4); Platelet Count 43 K/uL (130-400)
[2019-07-11 15:29] LABS: Adenovirus PCR Not Detected (NotDetected); Bordetella parapertussis PCR Not Detected (NotDetected); Bordetella pertussis PCR Not Detected (NotDetected); Chlamydia pneumoniae PCR Not Detected (NotDetected); Coronavirus 229E PCR Not Detected (NotDetected); Coronavirus HKU1 PCR Not Detected (NotDetected); Coronavirus NL63 PCR Not Detected (NotDetected); Coronavirus OC43PCR Not Detected (NotDetected); Human Metapneumovirus PCR Not Detected (NotDetected); Influenza A PCR Not Detected (NotDetected); Influenza B PCR Not Detected (NotDetected); Mycoplasma pneumoniae PCR Not Detected (NotDetected); Parainfluenza Virus 1 PCR Not Detected (NotDetected); Parainfluenza Virus 2 PCR Not Detected (NotDetected); Parainfluenza Virus 3 PCR Not Detected (NotDetected); Parainfluenza Virus 4 PCR Not Detected (NotDetected); Respiratory Syncytial VirusPCR Not Detected (NotDetected); Rhinovirus/Enterovirus PCR Not Detected (NotDetected)
[2019-07-11] MEDS ORDERED: LACTATED RINGER'S 1,000 ML IV ONE (15:58)
[2019-07-11] MEDS ORDERED: DOXYCYCLINE HYCLATE 100 MG CAP PO STA (15:58)
[2019-07-11] MEDS ORDERED: cefTRIAXone SODIUM 2,000 MG/70 ML BAG IV STA (15:58)
[2019-07-11 16:05] LABS: Basophils # (auto) 0.04 K/uL (0-0.2); Basophils % (auto) 0.7 %; Immature Granulocytes # (auto) 0.02 K/uL (0.00-0.02); Immature Granulocytes % (auto) 0.3 %; Lymphocytes # (auto) 0.67 K/uL (1.2-3.4); Lymphocytes % (auto) 11.7 %; Monocytes # (auto) 0.51 K/uL (0.11-0.59); Monocytes % (auto) 8.9 %; Neutrophils % (auto) 78.4 %; Platelet Estimate Decreased (Normal); Toxic Vacuolation 1+
--- NOTE | 2019-07-11 17:14 | History & Physical Report ---
Date of Service July 11, 2019 Assessment & Plan (1) Anaplasmosis: Presented with rigors/fever, tachycardia, nausea with one episode of vomiting, early sepsis, elevated lactate, headache and myalgias Found to have inclusion bodies on peripheral smear consistent with anaplasmosis He definitely has exposure to ticks as he works outside frequently and lives near the [facility]. -Check Lyme disease titer-negative -Was given 1 dose of p.o. doxycycline in the ER and 1 dose of IV ceftriaxone---> we will continue doxycycline 100 mg IV every 12 hours and convert to p.o. after his nausea improves-recommend 10-day course of p.o. doxycycline after discharge -With thrombocytopenia, elevated LFTs, and lymphopenia all consistent with anaplasmosis -Follow CBC, LFTs, renal function -Tylenol for fevers and oxycodone as needed for significant generalized pains in the setting of pre-existing chronic pain syndrome -No need for serological confirmatory testing -Gentle hydration with IV fluids-was given 2 L of LR bolused in the ER for mildly low blood pressure -Promethazine as needed as needed for nausea, diet as tolerated (2) Fever: Secondary to anaplasmosis -Treated with doxycycline as above -Tylenol as needed for fever (3) Headache: Likely secondary to anaplasmosis -Tylenol and/or oxycodone as needed -Avoid NSAIDs and aspirin given thrombocytopenia (4) Thrombocytopenia: Platelets 43K on admission-secondary to anaplasmosis No evidence of bleeding at this time -Hold NSAIDs, aspirin, hold Eliquis until platelets greater than 50 -Monitor for evidence of bleeding -Follow CBC in the morning -Should improve his anaplasmosis resolved (5) Elevated LFTs: Total bili, AST, ALT, and alkaline phosphatase all mildly elevated secondary to anaplasmosis -No abdominal pain, lipase is normal -Follow LFTs -Should improve with treatment of anaplasmosis (6) Paroxysmal atrial fibrillation: In atrial fibrillation upon admission, mildly tachycardic which is now improved with IV fluid resuscitation He is asymptomatic with this -Continue home doses of metoprolol and diltiazem if blood pressure can tolerate- hold parameters in place -Monitor on telemetry -Holding Eliquis for significant thrombocytopenia as above-would restart Eliquis if platelets greater than 50 (7) Chronic kidney disease, unspecified: CKD stage III Creatinine here is only mildly above baseline of 1.2 Creatinine 1.3 on admission -Giving IV fluid hydration -Avoid nephrotoxins -renally dose meds when appropriate -follow BMP (8) Dyslipidemia: Okay to continue statin Follow LFTs (9) Insomnia: Continue nortriptyline (10) Peripheral neuropathy: Continue gabapentin (11) Type 2 diabetes mellitus: Patient states he has prediabetes, but most recent hemoglobin A1c back in the fall was 7.3% -Insulin sliding scale, Accu-Cheks q. before meals and at bedtime -Check hemoglobin A1c in the morning (12) Obstructive sleep apnea: Patient has declined CPAP in the past (13) CAD (coronary artery disease): Patient denies history of coronary artery disease, but this is noted in his chart -Of note, he had a negative dobutamine stress test in 03/2018 -Hold home aspirin for thrombocytopenia, continue statin and metoprolol (14) DVT prophylaxis: OLENA patino only given thrombocytopenia Disposition-admit to medical floor with telemetry on observation, if improved and platelets rising by tomorrow, and if tolerating p.o.---> could likely discharge on Friday Admission and Anticipated Discharge Date Anticipated date of discharge: 07/12/19 History of Present Illness Chief Complaint: Fever, headache, nausea/vomiting Primary Care Provider: Hemal Nazario, This patient is a 78-year-old male with a history of prostate cancer, prediabetes, atrial fibrillation on Eliquis, osteoarthritis, HTN, hyperlipidemia, neuropathy, and insomnia, who presents to the ER with 4 days of chills/rigors, frontal headache, pain all over his body, and nausea with one episode of vomiting just prior to coming to the ER. No real abdominal pain but just a general sense of abdominal discomfort. No diarrhea. He denies any cough or shortness of breath, no chest pains, no sore throat or sinus symptoms or rhinorrhea. He does work outside a lot and lives near the [facility]. In the ER, he was found to have significant thrombocytopenia with platelets of 43 and elevated LFTs. He was febrile to 39 C and mildly hypotensive requiring boluses of IV fluids of which she responded to with a normalized blood pressure. He did have a bio fire virus respiratory panel which was negative. The pathologist reviewed the peripheral smear and saw inclusion bodies consistent with anaplasmosis. The patient was given IV ceftriaxone and p.o. doxycycline. He will be admitted for febrile illness, early sepsis, with anaplasmosis and nausea with vomiting. Allergies Allergy/AdvReac Type Severity Reaction Status Date / Time felodipine [From Plendil] Allergy Unknown unknown Verified 07/11/19 14:37 reaction losartan Allergy Unknown elevated Verified 07/11/19 14:37 creatinine (per records) chlorpheniramine AdvReac Unknown ureteral Verified 07/11/19 14:37 swelling DECONGESTANTS AdvReac Unknown ureteral Uncoded 07/11/19 14:37 swelling Home Medications Home Medications Medication Instructions Recorded Confirmed Type acetaminophen 650 mg 1,300 mg PO BID tab 10/15/18 07/11/19 History tablet,extended release cholecalciferol (vitamin D3) 25 1,000 units PO DAILY tab 10/15/18 07/11/19 History mcg (1,000 unit) tablet nitroglycerin 0.4 mg sublingual 0.4 mg SL ONCE PRN #25 tab 10/15/18 07/11/19 History tablet polyethylene glycol 3350 17 gram 17 gm PO DAILY PRN 12/15/18 07/11/19 History oral powder packet aspirin [Aspir-81] 81 mg PO DAILY 01/22/19 07/11/19 History diltiazem HCl 240 mg PO QAM 01/22/19 07/11/19 History nortriptyline 10 mg PO HS 01/22/19 07/11/19 History potassium chloride 40 meq PO DAILY 01/22/19 07/11/19 History triamterene-hydrochlorothiazid 1 tab PO QAM 01/22/19 07/11/19 History docusate sodium 100 mg capsule 100 mg PO QAM cap 01/25/19 07/11/19 History gabapentin 300 mg capsule 300 mg PO TID #270 cap 01/25/19 07/11/19 History metoprolol succinate 100 mg 150 mg PO DAILY tab 01/25/19 07/11/19 History tablet,extended release 24 hr blood sugar diagnostic #100 ea 02/09/19 06/01/19 Rx lancets 33 gauge #100 ea 02/09/19 06/01/19 Rx furosemide 40 mg tablet 40 mg PO DAILY PRN #30 tab 05/05/19 07/11/19 Rx apixaban 5 mg tablet 5 mg PO BID 05/06/19 07/11/19 History atorvastatin 80 mg tablet 80 mg PO HS #90 tab 05/06/19 07/11/19 Rx furosemide 40 mg tablet 40 mg PO 4XWK tab 05/06/19 07/11/19 History Past Med/Surg History Medical History CAD (coronary artery disease) stents x 2 (2004) Chronic kidney disease, unspecified Dyslipidemia History of high cholesterol History of prostate cancer s/p radiation implant + 25 beam radiation treatments History of therapeutic radiation seed implant Hypertension Insomnia Male erectile disorder of organic origin Mass of nasal sinus Obesity, Class I, BMI 30-34.9 Paroxysmal atrial fibrillation Peripheral neuropathy Prostate cancer (01/30/12) "Rising PSA Status post ultrasound-guided biopsies biopsy stage T2b [place] grade 3+4 Status post seed implant with cesium 131 08/18/2002 Status post completion of IMRT IGRT completed 11/16/2012 Declined hormone suppression " Psoriasis Sleep apnea could not tolerate CPAP Spinal stenosis Type 2 diabetes mellitus Urinary urgency Surgical History History of appendectomy History of cardiac cath 2005= STENTS X 2 History of colonoscopy History of lumbar discectomy History of lumbar fusion L4-5 History of shoulder surgery left History of shoulder surgery MANIPULATION, LEFT History of sinus surgery Image Guided Endoscopic Sinus Surgery, Septo Turb - Dr. Lei on 02/17/19. Family History Father Hearing loss Acute myocardial infarction Heart disease Family history of colonic polyps Hypertension Stroke Diabetes Mother Hearing loss Heart disease Stroke syndrome Hypertension Stroke Diabetes Son Cardiovascular disease Unknown No problems noted. Other No family history of adverse response to anesthesia No family history of bleeding disorder Social History Preferred Language: Faroese Communication Ability: Effective Visual Impairment: Limited Hearing Ability: Hard of Hearing Bistro Attendant Required: No Beliefs That Will Affect Care: None marital status: Current Living Situation: Spouse current occupational status: retired Other Information That Helps Us Care for You: No Feels Safe at Home: Yes Safety Concerns: Feels Safe At This Time Smoking Status: Never smoker Second Hand Exposure: No ; Hx Alcohol Use: No Hx Substance Use: No Childhood Exposure to Second-Hand Smoke: Yes caffeine: Yes (1/2 cup of coffee daily) Dental Care, Regularly: Yes Physical Activity Frequency: Does not Exercise Seatbelt Use: always Sunscreen Use: No (wears a hat while in the sun) Review of Systems Review of Systems: All systems reviewed & are unremarkable except as noted in HPI & below (No hematemesis or hematochezia, no constipation or diarrhea, has urinary urgency chronically, no hematuria, no epistaxis, no rashes, has chronic lower back pain, has acute on chronic joint pains) Physical Exam Constitutional: WD/WN, vitals as above Eyes: PERRL, conjunctivae normal, anicteric sclerae EOM intact bilaterally ENMT: Ears: no hearing impairment, no external ear abnormality, no EAC abnormality and no TM abnormality Nose: no external nose abnormality Mouth: + oropharynx abnormality (Mild erythema in posterior oropharynx); no tongue abnormality Neck: trachea midline, no thyromegaly Respiratory: normal respiratory effort, lungs clear to auscultation Cardiovascular: Rate/Rhythm: regular rate and + irregularly irregular Heart Sounds: no murmur Extremities: no calf tenderness and no edema Chest (Breasts): Chest: normal inspection of chest Gastrointestinal (Abdomen): normal bowel sounds, soft, nontender, no hepatosplenomegaly Musculoskeletal: Extremities: extremities normal to inspection; no cyanosis and no clubbing Skin: no rashes, warm and dry Neurologic: moves all extremities and awake; no focal motor deficits Psychiatric: A+Ox3, euthymic affect Lymphatic: + cervical lymphadenopathy (Shotty right anterior cervical lymphadenopathy); no lymphedema Results & Data Results & Data ([facility]) Vital Signs (Past 12 Hours) Vital Signs Temp Pulse Resp BP Pulse Ox 07/11/19 17:01 81 22 95 07/11/19 17:00 78 23 103/78 93 07/11/19 16:32 86 20 96 07/11/19 16:31 89 22 99/65 L 94 07/11/19 16:30 86 19 93 07/11/19 16:00 92 H 33 H 109/77 92 07/11/19 15:31 80 22 96 07/11/19 15:30 82 24 127/78 94 07/11/19 15:08 75 20 99/76 L 95 07/11/19 15:05 37.7 C H 07/11/19 15:00 84 22 99/76 L 96 07/11/19 14:31 87 24 95 07/11/19 14:30 84 21 135/68 95 07/11/19 14:29 90 28 H 95 07/11/19 14:24 98 H 22 110/73 92 07/11/19 13:30 39.2 C H 96 H 20 134/78 95 Laboratory Results 07/11/19 07/11/19 07/11/19 Range/Units Unknown 16:16 14:47 WBC (4.8-10.8) K/uL RBC (4.7-6.1) M/uL Hgb (14.0-18.0) g/dL Hct (42-52) % MCV (80-100) fL MCH (25-34) pg MCHC (32-36) g/dL RDW Std Deviation (36.4-46.3) fL RDW Coeff of Patito (11.5-14.5) % Plt Count (130-400) K/uL MPV (7.4-10.4) fL Immature Gran % (Auto) % Neut % (Auto) % Lymph % (Auto) % Nance % (Auto) % Eos % (Auto) % Baso % (Auto) % Immature Gran # (Auto) (0.00-0.02) K/uL Neut # (Auto) (1.4-6.5) K/uL Lymph # (Auto) (1.2-3.4) K/uL Nance # (Auto) (0.11-0.59) K/uL Eos # (Auto) (0-0.5) K/uL Baso # (Auto) (0-0.2) K/uL Blood Smear Review Toxic Vacuolation Platelet Estimate (Normal) PT 12.3 H INR 1.2 H APTT 33.1 H (21.0-31.0) Seconds PTT Ratio 1.2 Sodium (136-145) mmol/L Potassium 3.6 (3.5-5.1) mmol/L Chloride (98-107) mmol/L Carbon Dioxide (21-32) mmol/L Anion Gap (3-11) BUN (7-18) mg/dl Creatinine (0.6-1.4) mg/dl Est Cr Clr Drug Dosing ml/min Est GFR ( Amer) Est GFR (Non-Af Amer) BUN/Creatinine Ratio (10-20) Glucose (70-99) mg/dl Lactate 1.9 (0.4-2.0) mmol/L Calcium (8.5-10.1) mg/dl Total Bilirubin (0.2-1) mg/dl AST 119 H (15-37) U/L ALT (12-78) U/L Alkaline Phosphatase (45-117) U/L Troponin I (0-0.045) ng/ml Total Protein (6.4-8.2) gm/dl Albumin (3.4-5.0) gm/dl Globulin (2.5-4.0) gm/dl Albumin/Globulin Ratio (0.9-2) Lipase (73-393) U/L Procalcitonin (0-0.5) ng/ml Urine Color Urine Appearance (Clear) Urine pH (4.5-7.5) Ur Specific [place] (1.000-1.030) Urine Protein (Negative) Urine Glucose (UA) (Negative) Urine Ketones (Negative) Urine Blood (Negative) Urine Nitrite (Negative) Urine Bilirubin (Negative) Urine Urobilinogen (Negative) Ur Leukocyte Esterase (Negative) Urine WBC (Auto) (0-5) /hpf Urine RBC (Auto) (0-4) /hpf U Hyaline Cast (Auto) (0-5) /lpf U Epithel Cells (Auto) (0-5) /lpf Urine Bacteria (Auto) (Negative) Adenovirus (PCR) (NotDetected) B. pertussis DNA (PCR) (NotDetected) B.parapertussis DNA PCR (NotDetected) Lyme Disease IgG Ab (Negative) Lyme Disease IgM Ab (Negative) C. pneumoniae DNA (PCR) (NotDetected) Coronavirus OC43 (PCR) (NotDetected) Coronavirus HKU1 (PCR) (NotDetected) Coronavirus 229E (PCR) (NotDetected) Coronavirus NL63 (PCR) (NotDetected) Human Metapneumovir PCR (NotDetected) Influenza Type A (PCR) (NotDetected) Influenza Type B (PCR) (NotDetected) M. pneumoniae (PCR) (NotDetected) Parainfluenza 1 (PCR) (NotDetected) Parainfluenza 2 (PCR) (NotDetected) Parainfluenza 3 (PCR) (NotDetected) Parainfluenza 4 (PCR) (NotDetected) RSV (PCR) (NotDetected) Entero/Rhino (PCR) (NotDetected) 07/11/19 07/11/19 07/11/19 Range/Units 14:16 14:16 14:15 WBC (4.8-10.8) K/uL RBC (4.7-6.1) M/uL Hgb (14.0-18.0) g/dL Hct (42-52) % MCV (80-100) fL MCH (25-34) pg MCHC (32-36) g/dL RDW Std Deviation (36.4-46.3) fL RDW Coeff of Patito (11.5-14.5) % Plt Count (130-400) K/uL MPV (7.4-10.4) fL Immature Gran % (Auto) % Neut % (Auto) % Lymph % (Auto) % Nance % (Auto) % Eos % (Auto) % Baso % (Auto) % Immature Gran # (Auto) (0.00-0.02) K/uL Neut # (Auto) (1.4-6.5) K/uL Lymph # (Auto) (1.2-3.4) K/uL Nance # (Auto) (0.11-0.59) K/uL Eos # (Auto) (0-0.5) K/uL Baso # (Auto) (0-0.2) K/uL Blood Smear Review Toxic Vacuolation Platelet Estimate (Normal) PT INR APTT (21.0-31.0) Seconds PTT Ratio Sodium (136-145) mmol/L Potassium (3.5-5.1) mmol/L Chloride (98-107) mmol/L Carbon Dioxide (21-32) mmol/L Anion Gap (3-11) BUN (7-18) mg/dl Creatinine (0.6-1.4) mg/dl Est Cr Clr Drug Dosing ml/min Est GFR ( Amer) Est GFR (Non-Af Amer) BUN/Creatinine Ratio (10-20) Glucose (70-99) mg/dl Lactate (0.4-2.0) mmol/L Calcium (8.5-10.1) mg/dl Total Bilirubin (0.2-1) mg/dl AST (15-37) U/L ALT (12-78) U/L Alkaline Phosphatase (45-117) U/L Troponin I (0-0.045) ng/ml Total Protein (6.4-8.2) gm/dl Albumin (3.4-5.0) gm/dl Globulin (2.5-4.0) gm/dl Albumin/Globulin Ratio (0.9-2) Lipase (73-393) U/L Procalcitonin (0-0.5) ng/ml Urine Color Urine Appearance (Clear) Urine pH (4.5-7.5) Ur Specific [place] (1.000-1.030) Urine Protein (Negative) Urine Glucose (UA) (Negative) Urine Ketones (Negative) Urine Blood (Negative) Urine Nitrite (Negative) Urine Bilirubin (Negative) Urine Urobilinogen (Negative) Ur Leukocyte Esterase (Negative) Urine WBC (Auto) (0-5) /hpf Urine RBC (Auto) (0-4) /hpf U Hyaline Cast (Auto) (0-5) /lpf U Epithel Cells (Auto) (0-5) /lpf Urine Bacteria (Auto) (Negative) Adenovirus (PCR) Not Detected (NotDetected) B. pertussis DNA (PCR) Not Detected (NotDetected) B.parapertussis DNA PCR Not Detected (NotDetected) Lyme Disease IgG Ab Negative (Negative) Lyme Disease IgM Ab Negative (Negative) C. pneumoniae DNA (PCR) Not Detected (NotDetected) Coronavirus OC43 (PCR) Not Detected (NotDetected) Coronavirus HKU1 (PCR) Not Detected (NotDetected) Coronavirus 229E (PCR) Not Detected (NotDetected) Coronavirus NL63 (PCR) Not Detected (NotDetected) Human Metapneumovir PCR Not Detected (NotDetected) Influenza Type A (PCR) Cancelled Not Detected (NotDetected) Influenza Type B (PCR) Cancelled Not Detected (NotDetected) M. pneumoniae (PCR) Not Detected (NotDetected) Parainfluenza 1 (PCR) Not Detected (NotDetected) Parainfluenza 2 (PCR) Not Detected (NotDetected) Parainfluenza 3 (PCR) Not Detected (NotDetected) Parainfluenza 4 (PCR) Not Detected (NotDetected) RSV (PCR) Not Detected (NotDetected) Entero/Rhino (PCR) Not Detected (NotDetected) 07/11/19 07/11/19 07/11/19 Range/Units 14:15 14:15 14:15 WBC 5.74 (4.8-10.8) K/uL RBC 5.19 (4.7-6.1) M/uL Hgb 15.8 (14.0-18.0) g/dL Hct 45.5 (42-52) % MCV 87.7 (80-100) fL MCH 30.4 (25-34) pg MCHC 34.7 (32-36) g/dL RDW Std Deviation 43.0 (36.4-46.3) fL RDW Coeff of Patito 13.3 (11.5-14.5) % Plt Count 43 L (130-400) K/uL MPV 12.1 H (7.4-10.4) fL Immature Gran % (Auto) 0.3 % Neut % (Auto) 78.4 % Lymph % (Auto) 11.7 % Nance % (Auto) 8.9 % Eos % (Auto) 0.0 % Baso % (Auto) 0.7 % Immature Gran # (Auto) 0.02 (0.00-0.02) K/uL Neut # (Auto) 4.50 (1.4-6.5) K/uL Lymph # (Auto) 0.67 L (1.2-3.4) K/uL Nance # (Auto) 0.51 (0.11-0.59) K/uL Eos # (Auto) 0.00 (0-0.5) K/uL Baso # (Auto) 0.04 (0-0.2) K/uL Blood Smear Review Toxic Vacuolation 1+ Platelet Estimate Decreased L (Normal) PT INR APTT (21.0-31.0) Seconds PTT Ratio Sodium (136-145) mmol/L Potassium (3.5-5.1) mmol/L Chloride (98-107) mmol/L Carbon Dioxide (21-32) mmol/L Anion Gap (3-11) BUN (7-18) mg/dl Creatinine (0.6-1.4) mg/dl Est Cr Clr Drug Dosing ml/min Est GFR ( Amer) Est GFR (Non-Af Amer) BUN/Creatinine Ratio (10-20) Glucose (70-99) mg/dl Lactate (0.4-2.0) mmol/L Calcium (8.5-10.1) mg/dl Total Bilirubin (0.2-1) mg/dl AST (15-37) U/L ALT (12-78) U/L Alkaline Phosphatase (45-117) U/L Troponin I (0-0.045) ng/ml Total Protein (6.4-8.2) gm/dl Albumin (3.4-5.0) gm/dl Globulin (2.5-4.0) gm/dl Albumin/Globulin Ratio (0.9-2) Lipase (73-393) U/L Procalcitonin 0.93 H (0-0.5) ng/ml Urine Color Yellow Urine Appearance Cloudy A (Clear) Urine pH 5.0 (4.5-7.5) Ur Specific [place] 1.015 (1.000-1.030) Urine Protein 1+ H (Negative) Urine Glucose (UA) Negative (Negative) Urine Ketones Negative (Negative) Urine Blood Trace H (Negative) Urine Nitrite Negative (Negative) Urine Bilirubin Negative (Negative) Urine Urobilinogen Negative (Negative) Ur Leukocyte Esterase Negative (Negative) Urine WBC (Auto) 0 (0-5) /hpf Urine RBC (Auto) 5-10 H (0-4) /hpf U Hyaline Cast (Auto) 1-5 (0-5) /lpf U Epithel Cells (Auto) 10-20 H (0-5) /lpf Urine Bacteria (Auto) Negative (Negative) Adenovirus (PCR) (NotDetected) B. pertussis DNA (PCR) (NotDetected) B.parapertussis DNA PCR (NotDetected) Lyme Disease IgG Ab (Negative) Lyme Disease IgM Ab (Negative) C. pneumoniae DNA (PCR) (NotDetected) Coronavirus OC43 (PCR) (NotDetected) Coronavirus HKU1 (PCR) (NotDetected) Coronavirus 229E (PCR) (NotDetected) Coronavirus NL63 (PCR) (NotDetected) Human Metapneumovir PCR (NotDetected) Influenza Type A (PCR) (NotDetected) Influenza Type B (PCR) (NotDetected) M. pneumoniae (PCR) (NotDetected) Parainfluenza 1 (PCR) (NotDetected) Parainfluenza 2 (PCR) (NotDetected) Parainfluenza 3 (PCR) (NotDetected) Parainfluenza 4 (PCR) (NotDetected) RSV (PCR) (NotDetected) Entero/Rhino (PCR) (NotDetected) 07/11/19 07/11/19 07/11/19 Range/Units 14:15 14:15 14:15 WBC (4.8-10.8) K/uL RBC (4.7-6.1) M/uL Hgb (14.0-18.0) g/dL Hct (42-52) % MCV (80-100) fL MCH (25-34) pg MCHC (32-36) g/dL RDW Std Deviation (36.4-46.3) fL RDW Coeff of Patito (11.5-14.5) % Plt Count (130-400) K/uL MPV (7.4-10.4) fL Immature Gran % (Auto) % Neut % (Auto) % Lymph % (Auto) % Nance % (Auto) % Eos % (Auto) % Baso % (Auto) % Immature Gran # (Auto) (0.00-0.02) K/uL Neut # (Auto) (1.4-6.5) K/uL Lymph # (Auto) (1.2-3.4) K/uL Nance # (Auto) (0.11-0.59) K/uL Eos # (Auto) (0-0.5) K/uL Baso # (Auto) (0-0.2) K/uL Blood Smear Review Toxic Vacuolation Platelet Estimate (Normal) PT Cancelled INR Cancelled APTT (21.0-31.0) Seconds PTT Ratio Sodium 135 L (136-145) mmol/L Potassium (3.5-5.1) mmol/L Chloride 100 (98-107) mmol/L Carbon Dioxide 27 (21-32) mmol/L Anion Gap 8.0 (3-11) BUN 21 H (7-18) mg/dl Creatinine 1.37 (0.6-1.4) mg/dl Est Cr Clr Drug Dosing 48.8 ml/min Est GFR ( Amer) 56.9 Est GFR (Non-Af Amer) 49.1 BUN/Creatinine Ratio 15.0 (10-20) Glucose 172 H (70-99) mg/dl Lactate 2.3 H* (0.4-2.0) mmol/L Calcium 9.0 (8.5-10.1) mg/dl Total Bilirubin 1.2 H (0.2-1) mg/dl AST (15-37) U/L ALT 115 H (12-78) U/L Alkaline Phosphatase 145 H (45-117) U/L Troponin I < 0.015 (0-0.045) ng/ml Total Protein 8.3 H (6.4-8.2) gm/dl Albumin 3.3 L (3.4-5.0) gm/dl Globulin 5.0 H (2.5-4.0) gm/dl Albumin/Globulin Ratio 0.7 L (0.9-2) Lipase 80 (73-393) U/L Procalcitonin (0-0.5) ng/ml Urine Color Urine Appearance (Clear) Urine pH (4.5-7.5) Ur Specific [place] (1.000-1.030) Urine Protein (Negative) Urine Glucose (UA) (Negative) Urine Ketones (Negative) Urine Blood (Negative) Urine Nitrite (Negative) Urine Bilirubin (Negative) Urine Urobilinogen (Negative) Ur Leukocyte Esterase (Negative) Urine WBC (Auto) (0-5) /hpf Urine RBC (Auto) (0-4) /hpf U Hyaline Cast (Auto) (0-5) /lpf U Epithel Cells (Auto) (0-5) /lpf Urine Bacteria (Auto) (Negative) Adenovirus (PCR) (NotDetected) B. pertussis DNA (PCR) (NotDetected) B.parapertussis DNA PCR (NotDetected) Lyme Disease IgG Ab (Negative) Lyme Disease IgM Ab (Negative) C. pneumoniae DNA (PCR) (NotDetected) Coronavirus OC43 (PCR) (NotDetected) Coronavirus HKU1 (PCR) (NotDetected) Coronavirus 229E (PCR) (NotDetected) Coronavirus NL63 (PCR) (NotDetected) Human Metapneumovir PCR (NotDetected) Influenza Type A (PCR) (NotDetected) Influenza Type B (PCR) (NotDetected) M. pneumoniae (PCR) (NotDetected) Parainfluenza 1 (PCR) (NotDetected) Parainfluenza 2 (PCR) (NotDetected) Parainfluenza 3 (PCR) (NotDetected) Parainfluenza 4 (PCR) (NotDetected) RSV (PCR) (NotDetected) Entero/Rhino (PCR) (NotDetected) Diagnostic Findings XR chest 1V portable CLINICAL HISTORY: fever ACUTE CHANGE IN MENTAL STATUS COMPARISON STUDY: 07/10/2015 FINDINGS: The heart is mildly enlarged. There is persistent elevation right hemidiaphragm. There is no failure. There is no focal pulmonary consolidation. There is mild vascular crowding at the right lung base. There are no significant pleural effusions.[ IMPRESSION: No active disease in the chest. Code Status & VTE Plan VTE Prophylaxis Plan VTE Prophylaxis will be ordered: Yes Coding Level of Care Code 81487 OBS Care - Level 3 Diagnoses Anaplasmosis A77.49 Fever R50.9 Headache R51 Headache chronicity pattern: acute headache Headache type: unspecified Intractability: not intractable Thrombocytopenia D69.6 Elevated LFTs R79.89 Paroxysmal atrial fibrillation I48.0 Chronic kidney disease, unspecified N18.9 Dyslipidemia E78.5 Insomnia G47.00 Peripheral neuropathy G62.9 Type 2 diabetes mellitus E11.9 Obstructive sleep apnea G47.33 CAD (coronary artery disease) I25.10 DVT prophylaxis Z29.9 (1) Headache Headache chronicity pattern: acute headache Headache type: unspecified Intractability: not intractable Qualified Code(s): R51 - Headache
[2019-07-11] MEDS ORDERED: NITROGLYCERIN SL 0.4 MG/TAB TAB SL PRN (18:25)
[2019-07-11] MEDS ORDERED: POLYETHYLENE (MIRALAX) 17 GM PACK PO PRN (18:25)
[2019-07-11] MEDS ORDERED: MAGNESIUM HYDROXIDE SUSP 30 ML UDC PO PRN (18:25)
[2019-07-11] MEDS ORDERED: PROMETHAZINE HCL 12.5 MG in SODIUM CHLORIDE 0.9% 50 ML IV PRN (18:25)
[2019-07-11] MEDS ORDERED: OXYCODONE HCL IR 5 MG TAB (IMMEDIATE RELEASE) PO PRN ×2 (18:25)
[2019-07-11] MEDS ORDERED: ALUMINUM/MAGNESIUM SUSP 30 ML UDC PO PRN (18:25)
[2019-07-11 19:10] LABS: Lyme Ab IgG w/WB Rflx Negative (Negative); Lyme Ab IgM w/WB Rflx Negative (Negative)
[2019-07-11] MEDS: NSS + 20MEQ KCL 20 MEQ/1,000 ML BAG IV SCH (19:28)
[2019-07-11] MEDS ORDERED: GLUCAGON FOR INJ 1 MG VIAL SQ PRN (19:53)
[2019-07-11] MEDS ORDERED: CARBOHYDRATES FOR HYPOGLYCEMIA PO PRN (19:53)
[2019-07-11] MEDS ORDERED: GLUCOSE 40% GEL 15 GM TUBE PO PRN (19:53)
[2019-07-11] MEDS ORDERED: DEXTROSE 50% 50 ML SYRINGE IV PRN (19:53)
[2019-07-11] MEDS ORDERED: GLUCOSE 10 TABS/TUBE PO PRN (19:53)
[2019-07-11] MEDS: GABAPENTIN 300 MG CAP PO SCH (20:52)
[2019-07-11] MEDS: ACETAMINOPHEN 500 MG TAB PO SCH (20:56)
[2019-07-11] MEDS ORDERED: ATORVASTATIN 40 MG TAB PO SCH (21:00)
[2019-07-11] MEDS: INSULIN ASPART 100 UNITS/ML 3 ML PEN SC SCH (21:00)
[2019-07-11] MEDS ORDERED: NORTRIPTYLINE HCL 10 MG CAP PO SCH (21:00)
[2019-07-11] MEDS ORDERED: DOXYCYCLINE HYCLATE 100 MG in DEXTROSE 5% 100 ML IV SCH (21:00)
[2019-07-12] MEDS ORDERED: DOXYCYCLINE HYCLATE 100 MG in DEXTROSE 5% 100 ML IV SCH (04:00)
[2019-07-12 06:39] LABS: Hematocrit (blood only) 38.8 % (42-52); Hemoglobin 13.1 g/dL (14.0-18.0); Mean Corpuscular Hemoglobin 29.5 pg (25-34); Mean Corpuscular Hgb Conc 33.8 g/dL (32-36); Mean Corpuscular Volume 87.4 fL (80-100); RDW Coefficient of Variation 13.5 % (11.5-14.5); RDW Standard Deviation 43.2 fL (36.4-46.3); Red Blood Count 4.44 M/uL (4.7-6.1); White Blood Count 4.24 K/uL (4.8-10.8)
[2019-07-12 06:41] LABS: Mean Platelet Volume 11.7 fL (7.4-10.4); Platelet Count 31 K/uL (130-400)
[2019-07-12 06:50] LABS: INR 1.1 (0.9-1.1); Partial Thromboplastin Ratio 1.3; Partial Thromboplastin Time 36.4 Seconds (21.0-31.0); Prothrombin Time 11.5 Seconds (9.0-12.0)
[2019-07-12 07:09] LABS: Albumin Level 2.5 gm/dl (3.4-5.0); BUN Creatinine Ratio 16.2 (10-20); Bilirubin Direct 0.3 mg/dl (0-0.2); Calcium 7.9 mg/dl (8.5-10.1); Creatinine Clr Calc Pharmacy 61.7 ml/min; Est GFR (African American) 74.1; Magnesium 1.6 mg/dl (1.8-2.4); Potassium 3.3 mmol/L (3.5-5.1)
[2019-07-12 07:22] LABS: Bilirubin,Total 0.7 mg/dl (0.2-1); Total Protein 6.2 gm/dl (6.4-8.2)
[2019-07-12 07:39] LABS: Estimated Average Glucose 154 mg/dl
[2019-07-12] MEDS: GABAPENTIN 300 MG CAP PO SCH (07:55)
[2019-07-12] MEDS: ACETAMINOPHEN 500 MG TAB PO SCH (07:55)
[2019-07-12] MEDS: INSULIN ASPART 100 UNITS/ML 3 ML PEN SC SCH ×2 (07:57→12:05)
[2019-07-12 07:59] LABS: Anaplasmosis Smear(Rpt to DOH) Pos for Anaplasma
[2019-07-12 08:23] LABS: ALC (manual) 1.95 K/uL (1.2-3.4); ANC (manual) 2.03 K/uL (1.4-6.5); Basophils # (manual) 0.04 K/uL (0-0.2); Basophils % (manual) 0.9 %; Echinocytes 1+; Eosinophils # (manual) 0.07 K/uL (0-0.5); Eosinophils % (manual) 1.7 %; Lymphocytes # (manual) 0.78 K/uL (1.2-3.4); Lymphocytes % (manual) 18.3 %; Monocytes # (manual) 0.15 K/uL (0.11-0.59); Monocytes % (manual) 3.5 %; Neutrophils # (manual) 2.03 K/uL (1.4-6.5); Neutrophils % (manual) 47.8 %; Reactive Lymphocytes # (manual) 1.18 K/uL; Reactive Lymphocytes % (manual) 27.8 %
[2019-07-12] MEDS ORDERED: dilTIAZem HCL 240 MG CAPCR PO SCH (09:00)
[2019-07-12] MEDS ORDERED: METOPROLOL SUCC 50MG EXT REL TAB PO SCH (09:00)
[2019-07-12] MEDS ORDERED: DOCUSATE SODIUM 100 MG CAP PO SCH (09:00)
[2019-07-12] MEDS ORDERED: CHOLECALCIFEROL 1,000 UNITS 25 MCG TAB PO SCH (09:00)
[2019-07-12] MEDS: NSS + 20MEQ KCL 20 MEQ/1,000 ML BAG IV SCH (10:04)
--- NOTE | 2019-07-12 11:17 | Discharge Summary ---
Date of Service July 12, 2019 Admission HPI Per Admitting Provider This patient is a 78-year-old male with a history of prostate cancer, prediabetes, atrial fibrillation on Eliquis, osteoarthritis, HTN, hyperlipidemia, neuropathy, and insomnia, who presents to the ER with 4 days of chills/rigors, frontal headache, pain all over his body, and nausea with one episode of vomiting just prior to coming to the ER. No real abdominal pain but just a general sense of abdominal discomfort. No diarrhea. He denies any cough or shortness of breath, no chest pains, no sore throat or sinus symptoms or rhinorrhea. He does work outside a lot and lives near the [facility]. In the ER, he was found to have significant thrombocytopenia with platelets of 43 and elevated LFTs. He was febrile to 39 C and mildly hypotensive requiring boluses of IV fluids of which she responded to with a normalized blood pressure. He did have a bio [employer] virus respiratory panel which was negative. The pathologist reviewed the peripheral smear and saw inclusion bodies consistent with anaplasmosis. The patient was given IV ceftriaxone and p.o. doxycycline. He will be admitted for febrile illness, early sepsis, with anaplasmosis and nausea with vomiting. Principal Diagnosis anaplasmosis Discharge Exam gen pleasant nad heent nc at mmm breathing unlabored no accessory muscles good effort skin no rashes no pallor or icterus neuro no focal deficits at rest mental status intact Discharge Data Allergies Allergy/AdvReac Type Severity Reaction Status Date / Time felodipine [From Plendil] Allergy Unknown unknown Verified 07/11/19 14:37 reaction losartan Allergy Unknown elevated Verified 07/11/19 14:37 creatinine (per records) chlorpheniramine AdvReac Unknown ureteral Verified 07/11/19 14:37 swelling [employer]GE[employer]ANT[employer] AdvReac Unknown ureteral Uncoded 07/11/19 14:37 swelling Consultations 07/11/19 16:22 ED Decision to Admit Stat Hospital Course (1) Anaplasmosis: Presented with rigors/fever, tachycardia, nausea with one episode of vomiting, early sepsis, elevated lactate, headache and myalgias Found to have inclusion bodies on peripheral smear consistent with anaplasmosis --> improved quickly on doxycycline, able to eat/drink - stable/safe for home - finish 10 days doxy ---> outpt labs to follow leukopenia, thrombocytopenia, transaminitis to resolution (2) Fever: Secondary to anaplasmosis (3) Headache: Likely secondary to anaplasmosis -no complaint of this today (4) Thrombocytopenia: Platelets 43K on admission-secondary to anaplasmosis - dropped to 31k fairly typical for this process No evidence of bleeding at this time -- asa and eliquis on hold until plt above 50k - recheck in 3-4 days / instructed to hold asa/eliquis until plt above 50 (5) Elevated LFTs: Total bili, AST, ALT, and alkaline phosphatase all mildly elevated secondary to anaplasmosis -No abdominal pain, lipase is normal -Follow LFTs as outpt -Should improve with treatment of anaplasmosis (already improving some) (6) Paroxysmal atrial fibrillation: -rate controlled, anticoaguation on hold as noted -Holding Eliquis for significant thrombocytopenia as above-would restart Eliquis if platelets greater than 50 (7) Chronic kidney disease, unspecified: CKD stage III PO fluids, outpt Cr later this week -avoid NSAIDs (8) Dyslipidemia: Okay to continue statin Follow LFTs (9) Insomnia: Continue nortriptyline (10) Peripheral neuropathy: Continue gabapentin (11) Type 2 diabetes mellitus: A1c 7%; outpt f/u (12) Obstructive sleep apnea: Patient has declined CPAP in the past - can be readdressed as outpt (13) CAD (coronary artery disease): Patient denies history of coronary artery disease, but this is noted in his chart -Of note, he had a negative dobutamine stress test in 03/2018 -Hold home aspirin for thrombocytopenia, continue statin and metoprolol (14) DVT prophylaxis: OLENA patino only given thrombocytopenia stable for home Total Time Total Time Spent Total Time Spent (In Minutes): <30 Discharge Plan Discharge Items Patient Disposition: Home - Self-Care Reason For Visit: ANAPLASMOSIS, FEVER, NAUSEA/VOMITING Discharge Diagnosis: anaplasmosis (see below) Condition on Discharge: Good Activity: Resume your previous activity Non-emergency contact: Primary Care Provider Call non-emergency contact if: you have any medication questions and your symptoms worsen Follow-up/Referrals: Hemal Nazario DO [Primary Care Provider] - Diet: Regular Addtl Attending Provider Instructions: anaplasmosis -this is a tick borne illness that isn't quite as common as lyme, but in [facility] we see a ton of it. -i call it "lyme's angry cousin" because people tend to feel much sicker with this than with lyme disease - your symptoms of fever/aches/shaking are pretty common for this -fortunately after a day or two on the antibiotics we have you on, most people start to feel better - just as you are showing -typically we need to treat for about 10 days - so we'll send a prescription for 9 more days to round out the course of treatment; once treated we really never see a relapse, so if you were to feel worse for any reason, it would likely be a different issue (next dose of antibiotic at home should be before bedtime tonight) ---the doxycycline is usually well tolerated - sometimes it can cause an upset stomach so it's OK to take with food; also it can make some people very sensitive to sunburn - so wear protective clothing/sunblock [place] thought [place]. -your labs aren't back to normal - which is common for this - it typically takes a week or two for labs to normalize again - with that in mind, we would want you to get labwork checked (CBC, CMP) to ensure that thing have gone back to normal ---because of your labs not yet being normal - part of what is abnormal with anaplasmosis is platelet counts --> because platelets help our blood clot, we don't want you to be on blood thinners while your platelet counts are below 50 (right now is 31 - pretty typical for anaplasmosis) -- because of this we'll have you hold off on taking your eliquis and aspirin for the next few days - ideally have the above noted labwork checked or friday - and once your platelets have improved to above 50 then you can restart your eliquis and aspirin (we didnt change your medlist to say "stop" taking them since you'll be off them such a short period of time) -we would recommend that you avoid anti-inflammatories since they can be hard on your kidneys as well as having a mild blood-thinner effect tick borne illness prevention -as we were discussing, there are a number of easy-to-do steps to cut down on tick borne illness; because of the mask and face shield i have to wear right now, i think it was a little hard for you to hear what i was saying, so to recap: -ticks are extremely common in [facility] - the last several years we have been at or near the top for tick borne infections in the -you actually don't have to do much to get a tick bite around here - some people have "committed the offense" of getting their mail as the culprit (ie don't assume that you have to be in the houser, or in lots of vegetation, or out for a long time, in order to risk a tick bite - it pretty much can happen whenever -the main ticks we worry about for this are deer ticks (for lyme and anaplasmosis)(deer ticks are about the size of a poppy seed), lone star ticks can carry anaplasmosis as well but we don't necessarily see as many of them. the most common ticks i find on myself and my kids are dog ticks - which are big and gross but fortunately usually do not carry disease (i think that might have been something you misheard because of my mask/shield!) -for lyme disease, ticks have to be on for a good 36hrs before causing disease, other diseases like anaplasmosis don't necessarily need the tick to be on quite as long, but still usually they don't make you sick right away. with that in mind, we recommend a daily "tick check" to look yourself over to try to find any ticks that might have gotten on you when you were outside (again to reiterate - this should just be part of your daily routine if you've been outside at all - not just when you are doing something that really has you out in the dirt/ohuser/etc) -look yourself over from head to toe, looking to try to find ticks anywhere (they can sometimes get on scalp/hair, other times in skin folds and more "sneaky" places - so be thorough -if you find a tick, simply get some tweezers, grasp the tick as close to the skin as possible (try to not crush it while it's attached to you as that can, at least in theory, squeeze infectious agents into you), and then with good steady pressure (not tugging or jerking) pull until the tick pops free (it may surprise you how much your skin stretches until the tick lets go). if anything is left behind in the skin, it's not a big deal - your skin will expel it much like it would a splinter. then simply wash the area with soap and water and keep an eye on it (a day or two of surrounding redness can be normal - spreading redness of course would warrant evaluation/treatment) -wearing long sleeves/pants, taller socks, and using insect repellant can also cut down on tick bites Pending Studies at Discharge: No Stand-Alone Forms: My [facility] [place] REI, Smoking Cessation Medications and DC Order Prescriptions: New doxycycline hyclate 100 mg Capsule 100 mg PO BID Qty: 18 RF: 0 Continued (DME) OneTouch Ultra Blue Test Strip strip See Rx Instructions .ROUTE .MEDSUPPLY Qty: 100 RF: 3 (DME) lancets [OneTouch Delica Lancets] 33 gauge misc See Rx Instructions .ROUTE .MEDSUPPLY Qty: 100 RF: 3 furosemide 40 mg tablet 40 mg PO DAILY PRN (Reason: edema) Qty: 30 RF: 5 Eliquis 5 mg tablet 5 mg PO BID RF: 0 furosemide [Lasix] 40 mg tablet 40 mg PO 4XWK RF: 0 atorvastatin 80 mg tablet 80 mg PO HS Qty: 90 RF: 3 acetaminophen 650 mg tablet extended release 1,300 mg PO BID RF: 0 nitroglycerin 0.4 mg tablet, sublingual 0.4 mg SL ONCE PRN (Reason: Chest Pain) Qty: 25 RF: 0 cholecalciferol (vitamin D3) 1,000 unit tablet 1,000 units PO DAILY RF: 0 gabapentin 300 mg capsule 300 mg PO TID Qty: 270 RF: 0 metoprolol succinate 100 mg tablet extended release 24 hr 150 mg PO DAILY RF: 0 polyethylene glycol 3350 [Miralax] 17 gram powder in packet 17 gm PO DAILY PRN (Reason: Constipation) RF: 0 docusate sodium [Colace] 100 mg capsule 100 mg PO QAM RF: 0 diltiazem HCl 240 mg capsule,extended release 24 hr 240 mg PO QAM RF: 0 potassium chloride 10 mEq tablet extended release 40 meq PO DAILY RF: 0 nortriptyline 10 mg capsule 10 mg PO HS RF: 0 triamterene-hydrochlorothiazid 75-50 mg tablet 1 tab PO QAM RF: 0 aspirin [Aspir-81] 81 mg Tablet,Delayed Release (Dr/Ec) 81 mg PO DAILY RF: 0 Discharge Orders: Discharge Order (Routine); Ordered 07/12/19 Ordered By: Alex Santacruz Admission Data Admit Date/Time: 07/11/19 17:13 Attending Provider: Alex Santacruz Admit Provider: Fouzia Huitron Primary Care Provider: Hemal Nazario Other Providers: Fouzia Huitron Other Interventions: Discharge Summary Assessment (RN) Last Done: 07/12/19 11:05 Coding Level of Care Code 46563 OBS Care - Discharge Diagnoses Anaplasmosis A77.49 Fever R50.9 Headache R51 Headache chronicity pattern: acute headache Headache type: unspecified Intractability: not intractable Thrombocytopenia D69.6 Elevated LFTs R79.89 Paroxysmal atrial fibrillation I48.0 Chronic kidney disease, unspecified N18.9 Dyslipidemia E78.5 Insomnia G47.00 Peripheral neuropathy G62.9 Type 2 diabetes mellitus E11.9 Obstructive sleep apnea G47.33 CAD (coronary artery disease) I25.10 DVT prophylaxis Z29.9
--- NOTE | 2019-07-12 13:18 | Electrocardiogram Report ---
Test Reason : Blood Pressure : / mmHG Vent. Rate : 082 BPM Atrial Rate : 052 BPM P-R Int : 000 ms QRS Dur : 082 ms QT Int : 340 ms P-R-T Axes : 000 -27 265 degrees QTc Int : 397 ms Poor data quality, interpretation may be adversely affected Atrial fibrillation Nonspecific ST and T wave abnormality Abnormal ECG When compared with ECG of 10-JUL-2015 09:39, Atrial fibrillation has replaced Sinus rhythm Confirmed by Max Padilla ([id number]) on 07/12/2019 1:18:07 PM Referred By: Confirmed By:Max Padilla
[2019-07-12] MEDS ORDERED: DOXYCYCLINE HYCLATE 100 MG CAP PO SCH (18:00)
== END 2019-07-12 12:45 | disposition home or self-care (01) ==
LOC: ED 13:26 → 2W 13:26 → SUATTDRO 17:13 → 2W 18:06